=== PATIENT | female | born 1970 | race Caucasian/White ===

== ENCOUNTER 2017-06-18 00:58 | Inpatient (IN) | payer OTHER ==
[2017-06-18] MEDS ORDERED: Dextrose 50% Syringe 50 ML* 25 GM/50 ML SYRINGE IV PUSH PRN (02:25)
[2017-06-18] MEDS ORDERED: Nicotine Inhaler* 10 MG AMP INH PRN (02:35)
[2017-06-18] MEDS ORDERED: Mouth Piece, Nicotine* 1 EACH CARTRIDGE INH PRN (02:35)
[2017-06-18] MEDS ORDERED: Aspirin EC Low Dose* 81 MG TAB.EC PO ONE (02:39)
[2017-06-18] MEDS: Morphine INJ* 2 MG/ML 1 ML CARPUJECT IV PRN ×3 (03:54→20:44)
[2017-06-18] MEDS: Ondansetron INJ* 2 MG/ML VIAL IV PRN ×3 (03:55→16:41)
[2017-06-18 04:40] LABS: Hematocrit 41 % (35-47); Hemoglobin 13.9 g/dl (12.0-16.0); Mean Corpuscular HGB Conc 34 g/dl (31-36); Mean Corpuscular Hemoglobin 30 pg (27-31); Mean Corpuscular Volume 89 fL (80-97); Mean Platelet Volume 8 um3 (7.4-10.4); Platelet Count 279 10^3/ul (150-450); Red Blood Count 4.59 10^6/ul (4.0-5.4); Red Cell Distribution Width 13 % (10.5-15); White Blood Count 10.8 10^3/ul (3.5-10.8)
--- NOTE | 2017-06-18 04:48 | HP ---
CC: Dr. Sun * HISTORY AND PHYSICAL: DATE OF ADMISSION: 06/18/17 PRIMARY CARE PROVIDER: Dr. Sun. CHIEF COMPLAINT: Chest pain. HISTORY OF PRESENT ILLNESS: Ms. Frederick is a 47-year-old female who has a history of diabetes and bipolar disorder, who stopped all of her medications approximately 3 weeks ago because she is "old and fat." The patient did not elaborate why she felt that that was the reason to stop her medications. She states that earlier on the evening prior to admission, she had chest pain that she described as a burning sensation to the center of her chest. Additionally, she felt a tightness under the left breast and arm. The patient states the pain is still present to this point. When the pain started, she states that she had a very hard time catching her breath. She also felt very sweaty. She had no associated nausea. The patient presented to the emergency room of [facility] and was subsequently transferred here as her troponin was found to be very mildly elevated at 0.045. PAST MEDICAL HISTORY: 1. Type 2 diabetes. 2. ADHD. 3. Bipolar disorder. 4. Questionable seizure disorder. 5. Asthma. PAST SURGICAL HISTORY: 1. Left ear surgery. 2. Appendectomy. 3. x2. 4. Tubal ligation. MEDICATIONS: None. ALLERGIES: CODEINE, AZITHROMYCIN, CELEXA, and LEXAPRO. FAMILY HISTORY: Mom is living, she has a history of heart disease. Dad is from what sounds to be possibly multiple myeloma. SOCIAL HISTORY: The patient smokes 4 cigarettes per day. She denies any alcohol use. She does not work. She lives alone. She is unable to choose a surrogate decision maker. She starts crying when I asked her this question. REVIEW OF SYSTEMS: The patient continues to admit the chest pain. No significant shortness of breath at this point. No fevers, no chills. No change in appetite. No abdominal pain. No issues with constipation or diarrhea. Rest of the review of systems is obtained. Pertinent positives and negatives are as per HPI and otherwise negative. PHYSICAL EXAMINATION GENERAL: The patient is a well-developed, middle-aged female seen lying in the bed, appearing anxious, crying frequently during my exam. VITAL SIGNS: Pending. HEENT: Pupils are equal and round. Extraocular muscles are intact. Oropharynx is clear. Oral mucosa is moist. There is no submandibular, cervical , or supraclavicular adenopathy. Thyroid is not enlarged. No thyroid nodules are noted. PULMONARY: Lungs are clear to auscultation bilaterally. CARDIAC: Normal S1, S2. Heart rate sounds mildly tachycardic. I do not appreciate any murmurs. There is no lower extremity edema. ABDOMEN: Bowel sounds present. Abdomen is soft, nontender, and nondistended. MUSCULOSKELETAL: There is no cyanosis or clubbing of the digits. There is full active range of motion of all 4 extremities. NEURO: Cranial nerves II through XII are grossly intact. Sensation is intact to light touch throughout. Strength is 5/5 and symmetric in both upper and lower extremities bilaterally. PSYCH: The patient is alert. She is oriented x3. Again, she appears to be anxious. She is lying on her left side, rocking in the bed crying. SKIN: Warm and dry. There are no rashes. DIAGNOSTIC STUDIES/LAB DATA: Labs from [place], WBC 9.37, hemoglobin 14.1, hematocrit 42, platelets 305. INR is 0.87. Urinalysis reveals 3+ glucose, a specific gravity of 1.033, negative nitrites, negative leukocyte esterase. Sodium 139, potassium 4.2, chloride 102, CO2 27, BUN 11, creatinine 0.8, glucose 312, calcium 9.0, magnesium 1.8. Albumin 3.5. Bilirubin 0.1, AST less than 9, ALT 18, alk phos 134. CPK 46, troponin 0.045 (upper limit of normal at [facility] 0.020), CK-MB percentage 3.9. EKG does not appear to have been sent over with this packet. ASSESSMENT AND PLAN: Ms. Frederick is a 47-year-old female who has a history of diabetes, asthma, and bipolar disorder, who presented to [facility] with complaints of burning chest discomfort and more intense chest discomfort under her left breast/armpit and was found to have a mildly elevated troponin and sent to [facility] for further evaluation. 1. Elevated troponin and chest pain. The patient will have serial troponins x2. We will continue to follow this. If the troponin remains low, a stress test could be considered; however, I am very concerned about pursuing any aggressive treatment for potential coronary artery disease as the patient seems to not care about stopping her medications without any input from her physician. I do not know though that she would be an acceptable cardiac catheterization candidate. The patient will be given aspirin 81 mg p.o. x1 now. It does not appear she received aspirin at [facility]. 2. Bipolar disorder. Currently, the patient seems to be unstable from a mental health standpoint. She may need a Psychiatry consultation before being discharged home. It is unclear what she was taking previously for her bipolar disorder. Psychiatry consult may even be necessary just to identify what medications to start. The patient states that she would be agreeable to taking the medications, but says so in that she feels like she does not have a choice. 3. Tobacco abuse. We will initiate nicotine inhaler. 4. Type 2 diabetes. The patient stopped all of her medications several weeks ago. At one point, she was on metformin and Lantus. For now, I will have glucoses obtained a.c. and h.s. with lispro coverage. Hemoglobin A1c will be obtained. 5. DVT prophylaxis: According to the Adult Thrombosis Prophylaxis Risk Factor Assessment Guide, the patient has a total risk factor score of 2 making her moderate risk. Heparin 5000 units subcutaneous q.12 hours will be utilized as DVT prophylaxis. 6. Code status is DNR and again she is unable to choose her surrogate decision maker at this time. TIME SPENT: Fifty-five minutes was spent admitting this patient. [id number]/[facility] #: [id number] BHAKTI
[2017-06-18] MEDS ORDERED: Nitroglycerin 2% OINT* 1 GM PAK TOPICAL ONE (05:18)
--- NOTE | 2017-06-18 05:22 | PN ---
Progress Note - Progress Note Date of Service: 06/18/17 Note: The patient continues to c/o chest pain. Her troponin is up to 0.41. Will start NTG paste 1/2in topically now and heparin drip. Will consult cardiology. She will continue on ASA 81mg daily, lipitor 80mg daily and will start metoprolol 25mg BID. Follow up EKG at 0730. Check Echo.
[2017-06-18] MEDS: Metoprolol Tartrate TAB* 25 MG PO SCH ×5 (05:35→22:05)
[2017-06-18 05:47] LABS: ABS Basophils 0.1 10^3/ul (0-0.2); ABS Eosinophils 0.3 10^3/ul (0-0.6); ABS Lymphocytes 2.6 10^3/ul (1.0-4.8); ABS Neutrophils 6.2 10^3/ul (1.5-7.7); ABS Nucleated RBC 0 10^3/ul; Eosinophil % 3.3 % (0-6); Lymphocyte % 25.4 % (25-47); Nucleated Red Blood Cells % 0.3
[2017-06-18] MEDS: Heparin DRIP 25,000 UNITS(*) 25,000 UNITS/500 ML BAG IVPB SCH ×2 (06:09→09:17)
[2017-06-18] MEDS: Heparin VIAL(*) 5000 UNITS/ML VIAL (FIVE THOUSAND) IV SCH ×2 (06:10→18:31)
[2017-06-18] MEDS ORDERED: Aspirin Low Dose CHEW TAB* 81 MG ONE (06:43)
[2017-06-18] MEDS ORDERED: Nitroglycerin 2% OINT* 1 GM PAK ONE (06:44)
[2017-06-18] MEDS ORDERED: Ticagrelor* 90 MG TAB PO ONE ×2 (06:49)
[2017-06-18] MEDS ORDERED: fentaNYL* 50 MCG/ML 2 ML VIAL (100 MCG VIAL) ONE ×3 (06:58→07:53)
[2017-06-18] MEDS ORDERED: nitroGLYCERIN DRIP* 25,000 MCG/250 ML BTL ONE (06:58)
[2017-06-18] MEDS ORDERED: Heparin 2 UNITS/ML IVPREMIX* 2,000 ML IV ONE (06:58)
[2017-06-18] MEDS ORDERED: Lidocaine 1% INJ* 10 MG/ML 30 ML SDV ONE ×2 (06:58→08:14)
[2017-06-18] MEDS ORDERED: Midazolam* 1 MG/ML 10 ML VIAL (10 MG) ONE ×2 (06:59→07:10)
[2017-06-18] MEDS ORDERED: Iohexol 350 (CONTRAST) 200 ML MDV IV ONE (06:59)
[2017-06-18] MEDS ORDERED: Heparin(*) 1000 UNIT/ML 10 ML VIAL CATH LAB IV ONE (07:00)
[2017-06-18] MEDS ORDERED: VERAPAMIL 2.5 MG/ML 2 ML VIAL ** 5 mg/2 ml ONE (07:00)
[2017-06-18 07:04] LABS: EGFR Non-African American 115.5 (>60)
[2017-06-18 07:19] LABS: Hematocrit 39 % (35-47); Mean Corpuscular HGB Conc 33 g/dl (31-36); Mean Corpuscular Hemoglobin 29 pg (27-31); Mean Corpuscular Volume 88 fL (80-97); Mean Platelet Volume 10 um3 (7.4-10.4); Platelet Count 284 10^3/ul (150-450); Red Blood Count 4.45 10^6/ul (4.0-5.4); Red Cell Distribution Width 14 % (10.5-15); White Blood Count 13.4 10^3/ul (3.5-10.8)
[2017-06-18 07:47] LABS: EGFR Non-African American 113.2 (>60)
[2017-06-18] MEDS ORDERED: Heparin VIAL(*) 5000 UNITS/ML VIAL (FIVE THOUSAND) SUBCUT SCH (09:00)
[2017-06-18] MEDS ORDERED: NS 0.9% 1000 ML* 1,000 ML IV SCH (09:30)
[2017-06-18] MEDS: Insulin LISPRO* 1 UNITS UNIT SUBCUT SCH ×4 (10:18→22:02)
[2017-06-18] MEDS ORDERED: Magnesium Sulfate 1 GM IV* 1 GM/100 ML BAG IV ONE (10:26)
[2017-06-18] MEDS: LORazepam INJ* 2 MG/ML 1 ML VIAL IV PUSH PRN ×2 (10:33→20:38)
[2017-06-18] MEDS ORDERED: nitroGLYCERIN DRIP* 25,000 MCG/250 ML BTL IV SCH (12:00)
--- NOTE | 2017-06-18 15:07 | CONS ---
CC: Dr. Bernal INTERVENTIONAL CARDIOLOGY CONSULT NOTE: DATE OF CONSULT: 06/18/17 PRIMARY: None. HISTORY OF PRESENT ILLNESS: A 47-year-old woman admitted with non-ST elevation infarct, after the morning EKG, STEMI was called. She has a history of bipolar disease. She apparently stopped all her medications about 3 weeks ago. I hence consider her medically noncompliant. She presented to [facility] with chest discomfort with radiation to the left arm, their EKG at 2321 hours showed sinus rhythm with inferolateral nonspecific J- point ST depression without old EKGs available for comparison. Her blood pressure was high at 152/110. Her CBC was unremarkable, random blood sugar was high at 312. Creatinine normal at 0.8. Magnesium was lower limit of normal at 1.8. Her troponin was slightly elevated at 0.045, she was transferred to our institution. She was admitted, treated medically for ACS. During the night, she continued to have episodes of chest discomfort. EKG at 0627 hours showed sinus rhythm with new inferior J-point and ST elevation consistent with injury current. STEMI was called, she was brought to the lab[facility]. Because of her self discontinuation of all of her medications, I consider her medically noncompliant, and therefore, anticipated having a very high threshold for stenting, and if stenting was required, would likely use a bare-metal stent. PAST MEDICAL HISTORY: 1. Type 2 diabetes. 2. ADHD. 3. Bipolar disorder. 4. Questionable seizure disorder. 5. Asthma. MEDICATIONS: Prehospital medications none. Previously, she had been treated for diabetes and her bipolar disease. ALLERGIES: CODEINE, ZITHROMAX, CELEXA, and LEXAPRO per the chart. FAMILY HISTORY: She has a family history of premature coronary artery disease. SOCIAL HISTORY: She smokes a few cigarettes daily. REVIEW OF SYSTEMS: She denies any history of CVA or bleeding, aspirin intolerance. Remainder negative. PHYSICAL EXAM: BP at 0636 of 151/99, pulse 80s. She is afebrile. Brief exam in the lab[facility], lungs were clear laterally, cardiac exam was without gallop, murmur or rub. Carotids were normal, she had no JVD. She had a benign abdomen with bowel sounds, aorta not palpable. Radial, femoral and pedal pulses were all palpable. She had no cyanosis, clubbing, or edema. Psych: She was apparently oriented, anxious, seemed to understand the situation that she is having an infarct, the indication for cardiac cath and possible need for revascularization. DIAGNOSTIC STUDIES/LAB DATA: Labs here; CBC normal, BMP here notable for random blood sugar of 235. Hemoglobin A1c 9.5. Troponin here was 0.41 at 0433 , then decreased to 0.39. HCG was negative. Imp.: 1. IWSTEMI, she underwent emergent cath. 2. Medication non-compliance Jeane Bernal MD, FACCC [id number]/[facility] #: [id number] [facility]
[2017-06-18] MEDS ORDERED: Al Hydrox/Mg Hydrox/Simet LIQ* 30 ML UDC ONE (16:39)
[2017-06-18] MEDS: Al Hydrox/Mg Hydrox/Simet LIQ* 30 ML UDC PO ONE (16:41)
--- NOTE | 2017-06-18 17:33 | PN ---
Subjective Date of Service: 06/18/17 Interval History: Seen after [facility]. No intervention, 75% RCA preserved EF Patient very uncomfortable with wrist guard on needed s/p radial access Nausea and episode of emesis this AM but hungry later in the day however dislikes the food \ no additional chest pain while in nitro gtt Objective Active Medications: Acetaminophen (Tylenol Tab*) 650 mg PO Q4H PRN PRN Reason: PAIN Aspirin (Aspirin Low Dose Tab*) 81 mg PO DAILY [facility] Atorvastatin Calcium (Lipitor*) 80 mg PO 2100 [facility] Device (Nicotine Mouth Piece*) 1 each INH .USE WITH NICOTROL PRN PRN Reason: CRAVING Dextrose (D50w Syringe 50 Ml*) 12.5 gm IV PUSH .FOR FS < 60 - SS PRN PRN Reason: FS < 60 Heparin Sodium (Porcine) (Heparin Vial(*)) 0 units IV .PER PROTOCOL MELIA PRN Reason: Protocol Last Admin: 06/18/17 06:10 Dose: 3,500 units Heparin Sodium/Dextrose (Heparin Drip 25,000 Units(*)) 25,000 units in 500 mls @ 0 mls/hr IVPB PER RATE MELIA; Per Protocol PRN Reason: Protocol Last Admin: 06/18/17 09:17 Dose: 14 mls/hr Insulin Human Lispro (Humalog*) 0 units SUBCUT ACHS [facility] PRN Reason: Protocol Last Admin: 06/18/17 17:06 Dose: 3 units Lorazepam (Ativan Inj*) 0.5 mg IV PUSH Q6H PRN PRN Reason: ANXIETY Last Admin: 06/18/17 10:33 Dose: 0.5 mg Metoprolol Tartrate (Lopressor Tab*) 25 mg PO Q6H [facility] Last Admin: 06/18/17 16:41 Dose: 25 mg Morphine Sulfate (Morphine Inj (Syringe)*) 2 mg IV Q4H PRN PRN Reason: PAIN - MILD Last Admin: 06/18/17 06:47 Dose: 2 mg Nicotine (Nicotine Inhaler*) 10 mg INH Q2H PRN PRN Reason: CRAVING Nitroglycerin (Nitroglycerin Tab 0.4 Mg*) 0.4 mg SL Q5M PRN PRN Reason: ANGINA Ondansetron HCl (Zofran Inj*) 4 mg IV Q6H PRN PRN Reason: NAUSEA Last Admin: 06/18/17 16:41 Dose: 4 mg Ticagrelor (Brilinta*) 90 mg PO BID [facility] Vital Signs - 8 hr 06/18/17 06/18/17 06/18/17 09:30 09:43 09:46 Temperature 97.3 F Pulse Rate 81 90 81 Respiratory 17 19 18 Rate Blood Pressure 138/92 122/82 119/85 (mmHg) O2 Sat by Pulse 78 95 95 Oximetry 06/18/17 06/18/17 06/18/17 10:00 10:15 10:30 Temperature Pulse Rate 87 80 80 Respiratory 20 25 13 Rate Blood Pressure 122/83 112/67 116/80 (mmHg) O2 Sat by Pulse 91 93 93 Oximetry 06/18/17 06/18/17 06/18/17 10:33 10:45 11:00 Temperature Pulse Rate 82 85 Respiratory 17 23 20 Rate Blood Pressure 112/70 129/92 (mmHg) O2 Sat by Pulse 94 93 Oximetry 06/18/17 06/18/17 06/18/17 11:15 11:30 11:45 Temperature Pulse Rate 86 87 86 Respiratory 19 21 20 Rate Blood Pressure 132/84 129/81 126/84 (mmHg) O2 Sat by Pulse 92 94 95 Oximetry 06/18/17 06/18/17 06/18/17 11:57 12:00 12:01 Temperature 98.2 F Pulse Rate 89 81 Respiratory 21 15 Rate Blood Pressure 117/75 (mmHg) O2 Sat by Pulse 92 95 Oximetry 06/18/17 06/18/17 06/18/17 12:15 12:30 12:35 Temperature Pulse Rate 89 88 Respiratory 16 16 16 Rate Blood Pressure 127/79 113/63 (mmHg) O2 Sat by Pulse 95 95 Oximetry 06/18/17 06/18/17 06/18/17 12:45 13:00 13:01 Temperature Pulse Rate 86 95 86 Respiratory 15 29 17 Rate Blood Pressure 126/81 130/77 (mmHg) O2 Sat by Pulse 95 94 96 Oximetry 06/18/17 06/18/17 06/18/17 13:15 13:23 13:30 Temperature Pulse Rate 88 87 Respiratory 17 15 19 Rate Blood Pressure 136/87 134/88 (mmHg) O2 Sat by Pulse 95 95 Oximetry 06/18/17 06/18/17 06/18/17 13:46 14:00 14:15 Temperature Pulse Rate 99 87 88 Respiratory 20 16 21 Rate Blood Pressure 112/87 114/69 121/75 (mmHg) O2 Sat by Pulse 93 97 97 Oximetry 06/18/17 06/18/17 06/18/17 14:30 14:45 15:00 Temperature Pulse Rate 88 89 87 Respiratory 17 13 19 Rate Blood Pressure 119/73 117/67 136/82 (mmHg) O2 Sat by Pulse 97 95 96 Oximetry 06/18/17 06/18/17 06/18/17 15:10 15:15 15:30 Temperature 98.7 F Pulse Rate 86 85 Respiratory 15 25 Rate Blood Pressure 126/85 136/90 (mmHg) O2 Sat by Pulse 97 96 Oximetry 06/18/17 06/18/17 06/18/17 15:45 16:00 16:01 Temperature Pulse Rate 87 91 87 Respiratory 16 13 17 Rate Blood Pressure 144/92 91/75 (mmHg) O2 Sat by Pulse 94 98 96 Oximetry 06/18/17 06/18/17 06/18/17 16:15 16:30 17:00 Temperature Pulse Rate 88 83 Respiratory 23 18 18 Rate Blood Pressure 123/76 139/93 (mmHg) O2 Sat by Pulse 97 Oximetry Oxygen Devices in Use Now: None Appearance: NAD Eyes: No Scleral Icterus, PERRLA Ears/Nose/Mouth/Throat: NL Teeth, Lips, Gums, Clear Oropharnyx, Mucous Membranes Moist Neck: NL Appearance and Movements; NL JVP, Trachea Midline Respiratory: Symmetrical Chest Expansion and Respiratory Effort, Clear to Auscultation Cardiovascular: NL Sounds; No Murmurs; No JVD, RRR Abdominal: NL Sounds; No Tenderness; No Distention, No Hepatosplenomegaly Lymphatic: No Cervical Adenopathy Extremities: No Edema Skin: No Rash or Ulcers Neurological: Alert and Oriented x 3 Result Diagrams: 06/18/17 06:45 06/18/17 06:45 Microbiology and Other Data: Microbiology 06/18/17 05:00 Nasal Screen MRSA (PCR)(SEAN) - Final Nasal Mrsa Not Detected Assess/Plan/Problems-Billing Assessment: 47 yo F h/o DM2, bipolar dz, asthma, questionable seizure do presented to [facility] with chest pain and transferred to [facility] where ekg concerning for STEMI s /p [facility] without intervention - Patient Problems (1) STEMI (ST elevation myocardial infarction) Comment: Greatest blockage 75% Medical management especially in setting of subcritical occlusion and history of med non adherence ASA, brilinta, statin, beta augusto, heparin gtt nitro gtt and titrate down as pain allows Check lipids in AM (2) Diabetes Comment: hba1c 9.5% ISS (3) Bipolar disorder Comment: meds being confirmed with pharmacy currently (4) Tobacco abuse Comment: nicotine inhaler (5) DVT prophylaxis Comment: heparin gtt
[2017-06-18] MEDS ORDERED: LORazepam INJ* 2 MG/ML 1 ML VIAL IV PUSH ONE (17:51)
--- NOTE | 2017-06-18 20:16 | CATH ---
CC: Dr. Bernal CATH REPORT: DATE OF PROCEDURE: 06/18/17 PROCEDURE: Right radial artery access, bilateral selective coronary cineangiography, left heart catheterization, and left ventriculography. HISTORY: A 47-year-old diabetic with lengthy psychiatric history, medication noncompliance, with inferior wall ST elevation infarct. Because of medication noncompliance, threshold for stent placement is high, if needed likely would utilize bare metal stent. PROCEDURE ACCESS: Right radial artery sheath 6F slender. MEDICATIONS: 1. Subcu lidocaine. 2. IV Versed. 3. IV fentanyl. 4. IV bolus and infusion as well as loading dose of Brilinta given pre-tutorial laboratory supervisor. 5. Verapamil 3 mg. 6. Nitroglycerin 300 mcg IA. Additional nitroglycerin 100, 200 mcg IA for radial artery spasm. 7. IV nitroglycerin drip 12 mcg per minute. At the end of the procedure, her chest pain had resolved, she had ADAN-3 flow in the RPDA with intermediate stenosis, was not stented. She would be treated medically. DIAGNOSTIC CATHETER: 5F TIG4 for the RCA; because of radial artery spasm, torque control was poor, nonselective, but adequate left coronary imaging was obtained using a 5-Bulgarian Ikari left 3.5 guiding catheter as Ikari-3 was not available, a Slade left 3.5 catheter had no torque response. A 5F pigtail was used for LV gram. HEMODYNAMICS: Initial BP 162/115, LV 157/12-19, no aortic valve gradient on pullback. ANGIOGRAPHY: RCA: The RCA is tortuous, dominant, moderate, has a mid 30% stenosis, the PDA is moderate with a tubular proximal 75% stenosis extending back to the origin. The PDA has ADAN-3 flow. Left Main: The left main is normal in length and size, has no evident stenosis. Left coronary images were nonselective. LAD: The LAD is moderate, extends to the apex, has several small diagonals, the third diagonal bifurcates, proximal to the bifurcation there is a tubular 80 % stenosis extending into the bifurcation, it is too small for percutaneous revascularization. The LAD beyond the third diagonal has a smooth tubular 40% to 50% stenosis, distal LAD has ADAN-3 flow. Circumflex: The circumflex is not dominant, is moderate, supplies a small first marginal and 2 small distal posterolaterals. Circumflex has mid luminal irregularity without significant stenosis. LV gram: The inferior wall is dyskinetic in its mid portion, the anterior wall contracts normally, estimated LVEF 45%. Given the very small troponin rise, I expect the inferior wall is primarily stunned. CONCLUSION: 1. Two-vessel disease with inferior wall ST elevation infarct with intermediate PDA stenosis, normal flow, marked improvement/resolution of chest pain symptoms in the tutorial laboratory supervisor after institution of medical therapy in a patient with medication noncompliance, and relative contraindication for stenting. She will be treated medically. 2. LV systolic dysfunction as above. 3. Hypertension with elevated LVDP. 4. Left coronary imaging was adequate, although nonselective because of inability to selectively engage the left main due to right radial artery spasm limiting catheter movement and torque. 5. Successful right radial artery access. [id number]/[facility] #: [id number] [facility]TD[facility]
[2017-06-18] MEDS: OXcarbazepine TAB(*) 300 MG PO SCH (22:03)
[2017-06-18] MEDS: Topiramate TAB(*) 25 MG PO SCH (22:04)
[2017-06-18] MEDS: Atorvastatin* 80 MG TAB PO SCH (22:04)
[2017-06-18] MEDS: Ticagrelor* 90 MG TAB PO SCH (22:05)
[2017-06-19 01:26] LABS: Hematocrit 40 % (35-47); Hemoglobin 13.9 g/dl (12.0-16.0); Mean Corpuscular HGB Conc 35 g/dl (31-36); Mean Corpuscular Hemoglobin 31 pg (27-31); Mean Corpuscular Volume 88 fL (80-97); Mean Platelet Volume 8 um3 (7.4-10.4); Platelet Count 275 10^3/ul (150-450); Red Blood Count 4.52 10^6/ul (4.0-5.4); Red Cell Distribution Width 13 % (10.5-15); White Blood Count 21.6 10^3/ul (3.5-10.8)
[2017-06-19 01:48] LABS: ABS Basophils 0.2 10^3/ul (0-0.2); ABS Eosinophils 0.2 10^3/ul (0-0.6); ABS Lymphocytes 2.1 10^3/ul (1.0-4.8); ABS Monocytes 2.1 10^3/ul (0-0.8); ABS Neutrophils 17.1 10^3/ul (1.5-7.7); ABS Nucleated RBC 0 10^3/ul; Eosinophil % 0.8 % (0-6); Lymphocyte % 9.7 % (25-47); Nucleated Red Blood Cells % 0
[2017-06-19] MEDS: Al Hydrox/Mg Hydrox/Simet LIQ* 30 ML UDC PO ONE (02:00)
[2017-06-19] MEDS: Morphine INJ* 2 MG/ML 1 ML CARPUJECT IV PRN (02:00)
[2017-06-19] MEDS: Heparin VIAL(*) 5000 UNITS/ML VIAL (FIVE THOUSAND) IV SCH (02:28)
[2017-06-19] MEDS: Metoprolol Tartrate TAB* 25 MG PO SCH ×4 (04:28→22:02)
[2017-06-19] MEDS: LORazepam INJ* 2 MG/ML 1 ML VIAL IV PUSH PRN (04:29)
[2017-06-19 07:50] LABS: ABS Basophils 0.1 10^3/ul (0-0.2); ABS Eosinophils 0.1 10^3/ul (0-0.6); ABS Lymphocytes 2.3 10^3/ul (1.0-4.8); ABS Monocytes 1.3 10^3/ul (0-0.8); ABS Neutrophils 14.4 10^3/ul (1.5-7.7); ABS Nucleated RBC 0 10^3/ul; Eosinophil % 0.7 % (0-6); Hematocrit 42 % (35-47); Hemoglobin 14.2 g/dl (12.0-16.0); Lymphocyte % 12.5 % (25-47); Mean Corpuscular HGB Conc 34 g/dl (31-36); Mean Corpuscular Hemoglobin 30 pg (27-31); Mean Corpuscular Volume 88 fL (80-97); Mean Platelet Volume 9 um3 (7.4-10.4); Nucleated Red Blood Cells % 0; Platelet Count 284 10^3/ul (150-450); Red Blood Count 4.75 10^6/ul (4.0-5.4); Red Cell Distribution Width 13 % (10.5-15); White Blood Count 18.2 10^3/ul (3.5-10.8)
[2017-06-19 08:08] LABS: EGFR Non-African American 95.6 (>60)
[2017-06-19] MEDS: Insulin LISPRO* 1 UNITS UNIT SUBCUT SCH ×4 (09:07→20:52)
[2017-06-19] MEDS: OXcarbazepine TAB(*) 300 MG PO SCH ×2 (09:07→20:00)
[2017-06-19] MEDS: Topiramate TAB(*) 25 MG PO SCH ×2 (09:07→22:02)
[2017-06-19] MEDS: Aspirin Low Dose CHEW TAB* 81 MG PO SCH (09:07)
[2017-06-19] MEDS: Ticagrelor* 90 MG TAB PO SCH ×2 (09:07→20:01)
--- NOTE | 2017-06-19 09:31 | PN ---
Subjective Date of Service: 06/19/17 Interval History: Received ativan and morphine overnight. Feels very sleepy this morning. Denies pain, nausea, but is difficult to obtain a comprehensive review of systems due to sleepiness. Family History: Unchanged from Admission Social History: Unchanged from Admission Past Medical History: Unchanged from Admission Objective Active Medications: Acetaminophen (Tylenol Tab*) 650 mg PO Q4H PRN PRN Reason: PAIN Al Hydrox/Mg Hydrox/Simethicone (Maalox Plus*) 30 ml PO BID PRN PRN Reason: NAUSEA/HEARTBURN Aspirin (Aspirin Low Dose Tab*) [address] [facility] Last Admin: 06/19/17 09:07 Dose: 81 mg Atorvastatin Calcium (Lipitor*) [address] [facility] Last Admin: 06/18/17 22:04 Dose: 80 mg Device (Nicotine Mouth Piece*) 1 each INH .USE WITH NICOTROL PRN PRN Reason: CRAVING Dextrose (D50w Syringe 50 Ml*) 12.5 gm IV PUSH .FOR FS < 60 - SS PRN PRN Reason: FS < 60 Heparin Sodium (Porcine) (Heparin Vial(*)) 0 units IV .PER PROTOCOL [facility] PRN Reason: Protocol Last Admin: 06/19/17 02:28 Dose: 1,750 units Heparin Sodium/Dextrose (Heparin Drip 25,000 Units(*)) 25,000 units in 500 mls @ 0 mls/hr IVPB PER RATE MELIA; Per Protocol PRN Reason: Protocol Last Admin: 06/18/17 09:17 Dose: 14 mls/hr Insulin Human Lispro (Humalog*) [address] [facility] PRN Reason: Protocol Last Admin: 06/19/17 09:07 Dose: 9 units Lorazepam (Ativan Inj*) 0.5 mg IV PUSH Q6H PRN PRN Reason: ANXIETY Last Admin: 06/19/17 04:29 Dose: 0.5 mg Metoprolol Tartrate (Lopressor Tab*) [address] [facility] Last Admin: 06/19/17 09:07 Dose: 25 mg Morphine Sulfate (Morphine Inj (Syringe)*) 2 mg IV Q4H PRN PRN Reason: PAIN - MILD Last Admin: 06/19/17 02:00 Dose: 2 mg Nicotine (Nicotine Inhaler*) 10 mg INH Q2H PRN PRN Reason: CRAVING Nitroglycerin (Nitroglycerin Tab 0.4 Mg*) 0.4 mg SL Q5M PRN PRN Reason: ANGINA Ondansetron HCl (Zofran Inj*) 4 mg IV Q6H PRN PRN Reason: NAUSEA Last Admin: 06/18/17 16:41 Dose: 4 mg Oxcarbazepine (Trileptal Tab(*)) [address] [facility] Last Admin: 06/19/17 09:07 Dose: 600 mg Ticagrelor (Brilinta*) [address] [facility] Last Admin: 06/19/17 09:07 Dose: 90 mg Topiramate (Topamax(*)) [address] [facility] Last Admin: 06/19/17 09:07 Dose: 25 mg Topiramate (Topamax(*)) [address] [facility] Last Admin: 06/18/17 22:04 Dose: 50 mg Vital Signs - 8 hr 06/19/17 06/19/17 06/19/17 02:00 03:00 04:00 Temperature 97.4 F Pulse Rate 93 93 92 Respiratory 22 17 22 Rate Blood Pressure 143/93 132/89 132/87 (mmHg) O2 Sat by Pulse 96 95 96 Oximetry 06/19/17 06/19/17 06/19/17 04:29 05:00 06:00 Temperature Pulse Rate 98 92 Respiratory 16 21 18 Rate Blood Pressure 146/96 136/93 (mmHg) O2 Sat by Pulse 97 97 Oximetry 06/19/17 06/19/17 07:00 07:31 Temperature 98.8 F Pulse Rate 88 Respiratory 24 Rate Blood Pressure 119/74 (mmHg) O2 Sat by Pulse 96 Oximetry Oxygen Devices in Use Now: None Appearance: drowsy, arouses to voice, no distress Eyes: No Scleral Icterus, - - pupils 2mm b/l Ears/Nose/Mouth/Throat: NL Teeth, Lips, Gums Neck: NL Appearance and Movements; NL JVP Respiratory: Symmetrical Chest Expansion and Respiratory Effort, Clear to Auscultation Cardiovascular: NL Sounds; No Murmurs; No JVD, RRR, No Edema Abdominal: NL Sounds; No Tenderness; No Distention Lymphatic: No Cervical Adenopathy Extremities: - - right wrist lhc site clean, no hematoma Neurological: - - oriented only to person, follow simple commands, answers simple questions, able to sit up to side of bed, withdraws to pain Result Diagrams: 06/19/17 07:30 06/19/17 07:30 Microbiology and Other Data: Microbiology 06/18/17 05:00 Nasal Screen MRSA (PCR)(SEAN) - Final Nasal Mrsa Not Detected Assess/Plan/Problems-Billing Assessment: 47 yo F h/o DM2, bipolar dz, asthma, questionable seizure do presented to [facility] with chest pain and transferred to [facility] where ekg concerning for STEMI s /p [facility] without intervention - Patient Problems (1) STEMI (ST elevation myocardial infarction) Current Visit: Yes Status: Acute Code(s): I21.3 - ST ELEVATION (STEMI) MYOCARDIAL INFARCTION OF [facility] SITE SNOMED Code(s): 257486547 Comment: Greatest blockage 75% in the RCA Check urine drug screen for cocaine Medical management especially in setting of subcritical occlusion and med non adherence ASA, brilinta, statin, beta augusto, heparin gtt x 48 hours (has been 24hrs) Nitro drip has been titrated off, without chest pain now Lipid panel reveals hypercholesterolemia; continue high potency statin (atorva 80) (2) Bipolar disorder Current Visit: Yes Status: Acute Comment: topamax and oxcarbazepine resumed yesterday (3) DVT prophylaxis Current Visit: Yes Status: Acute Code(s): SRV7476 - SNOMED Code(s): 946120580 Comment: heparin gtt (4) Diabetes Current Visit: Yes Status: Acute Code(s): E11.9 - TYPE 2 DIABETES MELLITUS WITHOUT COMPLICATIONS SNOMED Code(s): 80348407 Comment: hba1c 9.5% ISS (5) Tobacco abuse Current Visit: Yes Status: Acute Code(s): Z72.0 - TOBACCO USE SNOMED Code( s): 127868702 Comment: nicotine inhaler Status and Disposition: inpatient, ICU level of care
[2017-06-19] MEDS: Heparin DRIP 25,000 UNITS(*) 25,000 UNITS/500 ML BAG IVPB SCH (10:48)
[2017-06-19] MEDS: Atorvastatin* 80 MG TAB PO SCH (20:01)
[2017-06-20 05:16] LABS: Hematocrit 42 % (35-47); Hemoglobin 14.1 g/dl (12.0-16.0); Mean Corpuscular HGB Conc 34 g/dl (31-36); Mean Corpuscular Hemoglobin 30 pg (27-31); Mean Corpuscular Volume 88 fL (80-97); Mean Platelet Volume 8 um3 (7.4-10.4); Platelet Count 259 10^3/ul (150-450); Red Blood Count 4.78 10^6/ul (4.0-5.4); Red Cell Distribution Width 14 % (10.5-15); White Blood Count 17.2 10^3/ul (3.5-10.8)
[2017-06-20 05:33] LABS: ABS Basophils 0.1 10^3/ul (0-0.2); ABS Eosinophils 0.1 10^3/ul (0-0.6); ABS Lymphocytes 1.8 10^3/ul (1.0-4.8); ABS Monocytes 1.6 10^3/ul (0-0.8); ABS Neutrophils 13.6 10^3/ul (1.5-7.7); ABS Nucleated RBC 0 10^3/ul; Eosinophil % 0.5 % (0-6); Lymphocyte % 10.6 % (25-47); Nucleated Red Blood Cells % 0
[2017-06-20 05:35] LABS: EGFR Non-African American 89.3 (>60)
[2017-06-20] MEDS: OXcarbazepine TAB(*) 300 MG PO SCH ×2 (08:36→21:50)
[2017-06-20] MEDS: Topiramate TAB(*) 25 MG PO SCH ×2 (08:36→21:50)
[2017-06-20] MEDS: Insulin LISPRO* 1 UNITS UNIT SUBCUT SCH ×4 (08:36→21:50)
[2017-06-20] MEDS: Aspirin Low Dose CHEW TAB* 81 MG PO SCH (08:36)
[2017-06-20] MEDS: Ticagrelor* 90 MG TAB PO SCH ×2 (08:36→21:49)
[2017-06-20] MEDS: Metoprolol Tartrate TAB* 25 MG PO SCH ×4 (09:07→21:50)
--- NOTE | 2017-06-20 12:26 | RAD ---
HISTORY: Weakness COMPARISONS: None TECHNIQUE: Multiple contiguous axial CT scans were obtained of the head without intravenous contrast. FINDINGS: HEMORRHAGE/INFARCT: There is no hemorrhage or acute infarct. MASSES/SHIFT: There is no mass or shift. EXTRA-AXIAL SPACES: There are no extra-axial fluid collections. SULCI AND VENTRICLES: The sulci and ventricles are normal in size and position for the patient's stated age. CEREBRUM: There are no focal parenchymal abnormalities. BRAINSTEM: There are no focal parenchymal abnormalities. CEREBELLUM: There are no focal parenchymal abnormalities. VESSELS: The vessels are grossly normal. PARANASAL SINUSES: The paranasal sinuses are clear. ORBITS: The orbits are unremarkable. BONES AND SOFT TISSUE: No bone or soft tissue abnormalities are noted. OTHER: None IMPRESSION: NO ACUTE INTRACRANIAL PATHOLOGY.
[2017-06-20] MEDS: LORazepam INJ* 2 MG/ML 1 ML VIAL IV PUSH PRN (13:28)
--- NOTE | 2017-06-20 18:06 | PN ---
Subjective Date of Service: 06/20/17 Interval History: no overnight events. she says this is the "most boring hospital" she's ever been to. she attempted to elope this morning but was brought back by security. no sore throat, headaches, nausea, abdominal pain, chest pain, diarrhea, rashes. Family History: Unchanged from Admission Social History: Unchanged from Admission Past Medical History: Unchanged from Admission Objective Active Medications: Acetaminophen (Tylenol Tab*) 650 mg PO Q4H PRN PRN Reason: PAIN Al Hydrox/Mg Hydrox/Simethicone (Maalox Plus*) 30 ml PO BID PRN PRN Reason: NAUSEA/HEARTBURN Aspirin (Aspirin Low Dose Tab*) 81 mg PO DAILY [facility] Last Admin: 06/20/17 08:36 Dose: 81 mg Atorvastatin Calcium (Lipitor*) 80 mg PO 2100 [facility] Last Admin: 06/19/17 20:01 Dose: 80 mg Device (Nicotine Mouth Piece*) 1 each INH .USE WITH NICOTROL PRN PRN Reason: CRAVING Dextrose (D50w Syringe 50 Ml*) 12.5 gm IV PUSH .FOR FS < 60 - SS PRN PRN Reason: FS < 60 Insulin Human Lispro (Humalog*) 0 units SUBCUT ACHS [facility] PRN Reason: Protocol Last Admin: 06/20/17 16:37 Dose: Not Given Lorazepam (Ativan Inj*) 0.5 mg IV PUSH Q6H PRN PRN Reason: ANXIETY Last Admin: 06/20/17 13:28 Dose: 0.5 mg Metoprolol Tartrate (Lopressor Tab*) 50 mg PO TID [facility] Last Admin: 06/20/17 13:14 Dose: Not Given Morphine Sulfate (Morphine Inj (Syringe)*) 2 mg IV Q4H PRN PRN Reason: PAIN - MILD Last Admin: 06/19/17 02:00 Dose: 2 mg Nicotine (Nicotine Inhaler*) 10 mg INH Q2H PRN PRN Reason: CRAVING Nitroglycerin (Nitroglycerin Tab 0.4 Mg*) 0.4 mg SL Q5M PRN PRN Reason: ANGINA Ondansetron HCl (Zofran Inj*) 4 mg IV Q6H PRN PRN Reason: NAUSEA Last Admin: 06/18/17 16:41 Dose: 4 mg Oxcarbazepine (Trileptal Tab(*)) 600 mg PO BID [facility] Last Admin: 06/20/17 08:36 Dose: 600 mg Ticagrelor (Brilinta*) 90 mg PO BID [facility] Last Admin: 06/20/17 08:36 Dose: 90 mg Topiramate (Topamax(*)) 25 mg PO DAILY [facility] Last Admin: 06/20/17 08:36 Dose: 25 mg Topiramate (Topamax(*)) 50 mg PO BEDTIME [facility] Last Admin: 06/19/17 22:02 Dose: 50 mg Vital Signs - 8 hr 06/20/17 06/20/17 06/20/17 13:04 13:28 14:46 Temperature 97.7 F Pulse Rate 111 Respiratory 16 18 18 Rate Blood Pressure 89/70 (mmHg) O2 Sat by Pulse 100 Oximetry 06/20/17 15:45 Temperature 100.4 F Pulse Rate 114 Respiratory 16 Rate Blood Pressure 89/61 (mmHg) O2 Sat by Pulse 98 Oximetry Oxygen Devices in Use Now: None Appearance: withdrawn, apathetic, depressed Eyes: No Scleral Icterus Ears/Nose/Mouth/Throat: - - poor dentition Neck: NL Appearance and Movements; NL JVP Respiratory: Symmetrical Chest Expansion and Respiratory Effort, Clear to Auscultation Cardiovascular: NL Sounds; No Murmurs; No JVD, RRR Abdominal: NL Sounds; No Tenderness; No Distention Lymphatic: No Cervical Adenopathy Extremities: No Edema Skin: No Rash or Ulcers Neurological: Alert and Oriented x 3, - - strength is 5/5 in all extremities, but she is unsteady on her feet, and when she walks she drags her right foot Result Diagrams: 06/20/17 05:00 06/20/17 05:00 Microbiology and Other Data: Microbiology 06/18/17 05:00 Nasal Screen MRSA (PCR)(SEAN) - Final Nasal Mrsa Not Detected Assess/Plan/Problems-Billing Assessment: 47 yo F h/o DM2, bipolar dz, asthma, questionable seizure do presented to [facility] with chest pain and transferred to [facility] [place] where ekg concerning for STEMI s /p LHC without intervention - Patient Problems (1) Suicidal ideation Current Visit: Yes Status: Acute Code(s): R45.851 - SUICIDAL IDEATIONS SNOMED Code(s): 0283667 Comment: admit to involuntary status; needs constant 1:1 observation psych consulted plan for inpatient psych when ready for discharge (2) STEMI (ST elevation myocardial infarction) Current Visit: Yes Status: Acute Code(s): I21.3 - ST ELEVATION (STEMI) MYOCARDIAL INFARCTION OF [facility] SITE SNOMED Code(s): 408142067 Comment: Greatest blockage 75% in the RCA urine drug screen for cocaine was negative Medical management especially in setting of subcritical occlusion and med non adherence ASA, brilinta, statin, beta augusto. received 48 hours of heparin drip. Nitro drip off. Lipid panel reveals hypercholesterolemia; continue high potency statin (atorva 80) (3) Bipolar disorder Current Visit: Yes Status: Acute Comment: topamax and oxcarbazepine resumed appreciate psych input on medication recommendations (4) DVT prophylaxis Current Visit: Yes Status: Acute Code(s): NGO9585 - SNOMED Code(s): 124515148 Comment: lovenox sc (5) Diabetes Current Visit: Yes Status: Acute Code(s): E11.9 - TYPE 2 DIABETES MELLITUS WITHOUT COMPLICATIONS SNOMED Code(s): 84599552 Comment: hba1c 9.5% ISS (6) Tobacco abuse Current Visit: Yes Status: Acute Code(s): Z72.0 - TOBACCO USE SNOMED Code( s): 113376964 Comment: nicotine inhaler (7) Leukocytosis Current Visit: Yes Status: Acute Code(s): D72.829 - ELEVATED WHITE BLOOD CELL COUNT, UNSPECIFIED SNOMED Code(s): 051749967 Comment: likely stress response from stemi flu/monospot are negative ck mildly elevated no localizing infectious symptoms Status and Disposition: inpatient, will need inpatient psych
--- NOTE | 2017-06-20 18:08 | PN ---
Progress Note - Progress Note Date of Service: 06/20/17 Note: Saw patient on bedside. Says she wants to go home as no one cares. Even after explaining why she needs to be in the hospital she insists that she wants to go home. Risks of her acute medical conditions and not complying with proposed treatments were explained. She does not appear to comprehend anything explained. She appeared sad, depressed and demoralized but there was no evidence of hallucinations, delusions or psychomotor disturbances. At this time she lacks mental capacity to make a informed decision for discharge home and poses a substantial risk for serious harm including if she is discharged. Hence, she should be transferred to [facility] on an involuntary status after medical clearance. Since she is on Oxcarbamazepine her Sodium level should me monitored closely and current hyponatremia should be corrected either by fluid restriction or adding Sodium Cl tablet. Please contact [facility] if you have questions.
[2017-06-20] MEDS: Enoxaparin(*) 40 MG/0.4 ML SYR SUBCUT SCH (19:40)
[2017-06-20] MEDS: Atorvastatin* 80 MG TAB PO SCH (21:49)
[2017-06-20] MEDS: Morphine INJ* 2 MG/ML 1 ML CARPUJECT IV PRN (21:51)
[2017-06-21 05:15] LABS: ABS Basophils 0.1 10^3/ul (0-0.2); ABS Eosinophils 0.1 10^3/ul (0-0.6); ABS Lymphocytes 1.9 10^3/ul (1.0-4.8); ABS Monocytes 1.4 10^3/ul (0-0.8); ABS Neutrophils 9.4 10^3/ul (1.5-7.7); ABS Nucleated RBC 0 10^3/ul; Eosinophil % 0.9 % (0-6); Hematocrit 37 % (35-47); Hemoglobin 12.5 g/dl (12.0-16.0); Lymphocyte % 14.9 % (25-47); Mean Corpuscular HGB Conc 34 g/dl (31-36); Mean Corpuscular Hemoglobin 30 pg (27-31); Mean Corpuscular Volume 87 fL (80-97); Mean Platelet Volume 9 um3 (7.4-10.4); Nucleated Red Blood Cells % 0.1; Platelet Count 257 10^3/ul (150-450); Red Blood Count 4.19 10^6/ul (4.0-5.4); Red Cell Distribution Width 14 % (10.5-15); White Blood Count 12.9 10^3/ul (3.5-10.8)
[2017-06-21 05:35] LABS: EGFR Non-African American 90.8 (>60)
[2017-06-21] MEDS: Insulin LISPRO* 1 UNITS UNIT SUBCUT SCH ×5 (09:18→21:36)
[2017-06-21] MEDS: Metoprolol Tartrate TAB* 25 MG PO SCH ×3 (09:19→20:14)
[2017-06-21] MEDS: Topiramate TAB(*) 25 MG PO SCH ×2 (09:19→20:14)
[2017-06-21] MEDS: glipiZIDE TAB* 5 MG PO SCH (09:19)
[2017-06-21] MEDS: OXcarbazepine TAB(*) 300 MG PO SCH ×2 (09:19→20:14)
[2017-06-21] MEDS: Ticagrelor* 90 MG TAB PO SCH ×2 (09:19→20:13)
[2017-06-21] MEDS: metFORMIN* 500 MG TAB PO SCH ×2 (09:19→17:45)
[2017-06-21] MEDS: Aspirin Low Dose CHEW TAB* 81 MG PO SCH (09:19)
[2017-06-21] MEDS ORDERED: NS 0.9% 1000 ML* 1,000 ML IV SCH (10:45)
--- NOTE | 2017-06-21 11:04 | PN ---
Subjective Date of Service: 06/21/17 Interval History: Pt stated that she "can't walk straight" since the cath. PT evaluated and recommended gait belt. Pt is upset about the need of psychiatric hospitalization, called her psychiatrist from home who agreed with the need of admission to [facility]. Pt is very upset that her children are not visiting her and that "no one cares about her". She has no teeth and her dentures were left at home and her children will not bring the to her. Family History: Unchanged from Admission Social History: Unchanged from Admission Past Medical History: Unchanged from Admission Objective Active Medications: Acetaminophen (Tylenol Tab*) 650 mg PO Q4H PRN PRN Reason: PAIN Al Hydrox/Mg Hydrox/Simethicone (Maalox Plus*) 30 ml PO BID PRN PRN Reason: NAUSEA/HEARTBURN Aspirin (Aspirin Low Dose Tab*) 81 mg PO DAILY [facility] Last Admin: 06/21/17 09:19 Dose: 81 mg Atorvastatin Calcium (Lipitor*) 80 mg PO 2100 [facility] Last Admin: 06/20/17 21:49 Dose: 80 mg Device (Nicotine Mouth Piece*) 1 each INH .USE WITH NICOTROL PRN PRN Reason: CRAVING Dextrose (D50w Syringe 50 Ml*) 12.5 gm IV PUSH .FOR FS < 60 - SS PRN PRN Reason: FS < 60 Enoxaparin Sodium (Lovenox(*)) 40 mg SUBCUT Q24H [facility] Last Admin: 06/20/17 19:40 Dose: 40 mg Glipizide (Glucotrol Tab*) 5 mg PO DAILY [facility] Last Admin: 06/21/17 09:19 Dose: 5 mg Sodium Chloride (Ns 0.9% 1000 Ml*) 1,000 mls @ 125 mls/hr IV PER RATE [facility] Insulin Human Lispro (Humalog*) 0 units SUBCUT ACHS [facility] PRN Reason: Protocol Last Admin: 06/21/17 09:18 Dose: 6 units Lorazepam (Ativan Inj*) 0.5 mg IV PUSH Q6H PRN PRN Reason: ANXIETY Last Admin: 06/20/17 13:28 Dose: 0.5 mg Metformin HCl (Glucophage*) 500 mg PO BID WITH MEALS [facility] Last Admin: 06/21/17 09:19 Dose: 500 mg Metoprolol Tartrate (Lopressor Tab*) 50 mg PO TID [facility] Last Admin: 06/21/17 09:19 Dose: 50 mg Morphine Sulfate (Morphine Inj (Syringe)*) 2 mg IV Q4H PRN PRN Reason: PAIN - MILD Last Admin: 06/20/17 21:51 Dose: 2 mg Nicotine (Nicotine Inhaler*) 10 mg INH Q2H PRN PRN Reason: CRAVING Nitroglycerin (Nitroglycerin Tab 0.4 Mg*) 0.4 mg SL Q5M PRN PRN Reason: ANGINA Ondansetron HCl (Zofran Inj*) 4 mg IV Q6H PRN PRN Reason: NAUSEA Last Admin: 06/18/17 16:41 Dose: 4 mg Oxcarbazepine (Trileptal Tab(*)) 600 mg PO BID [facility] Last Admin: 06/21/17 09:19 Dose: 600 mg Ticagrelor (Brilinta*) 90 mg PO BID [facility] Last Admin: 06/21/17 09:19 Dose: 90 mg Topiramate (Topamax(*)) 25 mg PO DAILY [facility] Last Admin: 06/21/17 09:19 Dose: 25 mg Topiramate (Topamax(*)) 50 mg PO BEDTIME [facility] Last Admin: 06/20/17 21:50 Dose: 50 mg Vital Signs - 8 hr 06/21/17 06/21/17 06/21/17 04:12 07:45 07:59 Temperature 98.8 F 98.9 F Pulse Rate 100 103 Respiratory 16 16 20 Rate Blood Pressure 94/55 110/64 (mmHg) O2 Sat by Pulse 97 99 Oximetry Oxygen Devices in Use Now: None Appearance: 47 yo F in nAD, AAOx3 Eyes: No Scleral Icterus, PERRLA Ears/Nose/Mouth/Throat: Clear Oropharnyx, Mucous Membranes Moist, - - no teeth Neck: NL Appearance and Movements; NL JVP, Trachea Midline Respiratory: Symmetrical Chest Expansion and Respiratory Effort, Clear to Auscultation Cardiovascular: NL Sounds; No Murmurs; No JVD, RRR Abdominal: NL Sounds; No Tenderness; No Distention Lymphatic: No Cervical Adenopathy Extremities: No Edema, No Clubbing, Cyanosis Skin: No Rash or Ulcers, No Nodules or Sclerosis Neurological: Alert and Oriented x 3, - - ataxic gait, mild R leg weakness, finger to nose dysmetric by 2-3 cm b/l Result Diagrams: 06/21/17 04:47 06/21/17 04:47 Microbiology and Other Data: Microbiology 06/18/17 05:00 Nasal Screen MRSA (PCR)(SEAN) - Final Nasal Mrsa Not Detected Assess/Plan/Problems-Billing Assessment: 47 yo F h/o DM2, bipolar dz, asthma, questionable seizure do presented to [facility] with chest pain and transferred to [facility] where ekg concerning for STEMI s /p cath without intervention - Patient Problems (1) STEMI (ST elevation myocardial infarction) Comment: Greatest blockage 75% in the RCA urine drug screen for cocaine was negative Medical management especially in setting of subcritical occlusion and med non adherence ASA, brilinta, statin, beta augusto. received 48 hours of heparin drip. On lopressor 50 mg TID in face of hypotension-half od doses were held. d/w Dr. Funes who recommends continuation of current dose and monitoring Lipid panel reveals hypercholesterolemia; continue Lipitor (2) Ataxia Comment: pt states that it occured post cath Pt is ataxic on exam. D/w DR. Huerta who recommended MRI brain and will see pt in consult (3) Bipolar disorder Comment: topamax and oxcarbazepine resumed(pt stopped it x 3 weeks prior to her admission) appreciate psych input on medication recommendations (4) Hyponatremia Comment: Sodium still 129 (mild hyponatremia), but pt had been on Trileptal for several years with no hyponatremia in the past. Pt has no teeth and PO intake had been inconsistent due to mood swings. will start IVF-suspect pt has mild hypovolemia She refuses to consider discontinuation of Trileptal. (5) Leukocytosis Comment: likely stress response from STEMI flu/monospot are negative resolving (6) Diabetes Comment: hba1c 9.5% cont ISS restarting glipizide, metformin (7) Suicidal ideation Comment: admit to involuntary status; needs constant 1:1 observation psych consulted plan for inpatient psych when ready for discharge No SI today (8) DVT prophylaxis Comment: lovenox sc Status and Disposition: inpatient, will need inpatient psych
[2017-06-21] MEDS: Venlafaxine EXT RELEASE CAP* 75 MG PO SCH (13:44)
[2017-06-21] MEDS: Morphine INJ* 2 MG/ML 1 ML CARPUJECT IV PRN (19:35)
[2017-06-21] MEDS: Enoxaparin(*) 40 MG/0.4 ML SYR SUBCUT SCH (20:10)
[2017-06-21] MEDS: Atorvastatin* 80 MG TAB PO SCH (20:21)
--- NOTE | 2017-06-21 22:02 | CONS ---
NEUROLOGY CONSULTATION: DATE OF CONSULT: 06/21/17 LOCATION: She is an inpatient in room 335. REFERRING PHYSICIAN: Dr. Arechiga. PRIMARY CARE PROVIDER: Dr. Toney. CHIEF COMPLAINT: Difficulty walking. HISTORY OF PRESENT ILLNESS: Stephany Frederick is a 47-year-old woman who presented to the hospital on 06/18/17 initially to [facility] where she complained of burning chest pain. She was transferred here after initial lab work showed an elevated troponin. She underwent a cardiac catheterization. This revealed 2-vessel coronary artery disease with an inferior wall infarction. Some time after that she was noted to have difficulty walking. When I asked when it started, she says when she got here, but then she says it began a month ago and then she said it began a few weeks ago. She says that she has dizziness and that her legs feel weak. She denies numbness or pain in her legs. She has not had any nausea or vomiting. She denies change in her vision or double vision or change in her speech. She had a brain CT yesterday without contrast, which I reviewed, which is interpreted as normal. She denies any history of falls or head injuries. She denies history of epilepsy or episodes of loss of consciousness. She had stopped all of her medications a few weeks ago for no clear reason. She has a history of bipolar disorder and was put back on Trileptal, venlafaxine, and Topamax. She does not know why she is on Topamax and denies headaches or seizures. She does not drink alcohol. PAST MEDICAL HISTORY: Notable for bipolar disorder, coronary artery disease, type 2 diabetes, hypertension, appendectomy, section, tubal ligation, and asthma. MEDICATIONS: She was not taking any medications when she was admitted. Currently she is on: 1. Aspirin 81 mg p.o. daily. 2. Atorvastatin 80 mg p.o. daily. 3. Lovenox 40 mg subcutaneous q.24 hours. 4. Glipizide 5 mg p.o. daily. 5. Sliding scale insulin. 6. Metformin 500 mg p.o. b.i.d. 7. Metoprolol 50 mg p.o. t.i.d. 8. Ondansetron 5 mg IV q.6 hours p.r.n. nausea. 9. Trileptal 600 mg p.o. b.i.d. 10. Brilinta 90 mg p.o. b.i.d. 11. Topiramate 75 mg p.o. daily in divided doses. 12. Venlafaxine XR 75 mg p.o. daily. ALLERGIES: She is listed to having allergies to CODEINE and CITALOPRAM. FAMILY HISTORY: Noncontributory. REVIEW OF SYSTEMS: Negative for headaches, falls, change in speech, double vision, pain or numbness in the arms or legs, neck problems. No history of traumatic brain injury. No recent colds, flus, or infections that she is aware of. No change in weight recently. PHYSICAL EXAMINATION: She is well-nourished and overweight. Temperature 98.9 temporally, blood pressure 110/64, heart rate about a 100 and regular. Respiratory rate 20 and oxygen saturations 99% on room air. Lungs are clear bilaterally. Heart is in a regular rhythm, but I do not hear any murmurs. There are no cervical bruits. Oral mucosa is moist and atraumatic. Neurologic Exam: Pupils react equally from 3 to 2 mm. Funduscopic exam is normal on the left. Eye movements are normal, specifically, no nystagmus. Visual moreno are full to confrontation. Facial musculature is symmetric. Tongue protrudes in the midline and palate rises symmetrically. There is no dysarthria. Facial sensation to light touch is symmetric. Motor exam reveals normal muscle tone, bulk, and strength proximally and distally in upper and lower extremities. There is no rigidity or spasticity. There is no sustention tremor. [id number] maneuver is normal bilaterally and [id number] maneuver is normal bilaterally as well. There is no rest tremor. Sensory exam is intact to light touch distally in upper and lower extremities. Pin discrimination is diminished in the feet. Vibration is mildly diminished in the toes. Reflexes are brisk in the upper extremities, grade 2 at the knees, trace at the ankles. Plantar responses flexor on the left and equivocal on the right. She is alert and oriented, but a poor historian with inconsistent responses. Language is generally fluent. I was able to stand her and she reported feeling dizzy. Eye movements were still normal without nystagmus. Romberg sign was negative initially, but then she admitted sudden dramatic alert, she then opened her eyes and smiled. She was able to walk a few steps, but was with a broad-base and was very unsteady. DIAGNOSTIC STUDIES/LAB DATA: Includes a chemistry profile with a glucose today of 286, it was 235 when she first came in. Hemoglobin A1c is 9.5%. Sodium is down to 129, the day after admission was 133 when she came in. Calcium is normal at 8.9 and liver enzymes are normal. She has elevated CK and troponins up to 06/19/17. Total T3 is slightly low at 0.45, but TSH is normal at 0.67. T4 is within normal limits at 7.09. CBC is notable for slight bump in her white blood cell count to 12.9 today, it was 13.4 when she first came in. Toxicology screen on 06/19/17 was positive for opiates and benzodiazepines. IMPRESSION: Impression is that of ataxia, which looks like it might be psychogenic. However, given the uncertainty of onset and the fact that she did have a cardiac catheterization, I have recommended MRI of the brain to look for any evidence of posterior circulation stroke. I would also recommend checking a vitamin B12 level as she has some signs of neuropathy on exam, although it is probably from poorly controlled diabetes. I will order a Lyme screen and serum protein electrophoresis for the same reasons. I will follow her along with you. Her imaging shows and if it is negative and her labs are unremarkable, we will just try to encourage with physical therapy to get her back on her feet again. [id number]/[facility] #: [id number] BHAKTI
[2017-06-22 05:53] LABS: ABS Basophils 0.1 10^3/ul (0-0.2); ABS Eosinophils 0.1 10^3/ul (0-0.6); ABS Lymphocytes 1.6 10^3/ul (1.0-4.8); ABS Neutrophils 8.6 10^3/ul (1.5-7.7); ABS Nucleated RBC 0 10^3/ul; Hematocrit 37 % (35-47); Hemoglobin 12.3 g/dl (12.0-16.0); Lymphocyte % 14.4 % (25-47); Mean Corpuscular HGB Conc 34 g/dl (31-36); Mean Corpuscular Hemoglobin 30 pg (27-31); Mean Corpuscular Volume 88 fL (80-97); Mean Platelet Volume 9 um3 (7.4-10.4); Nucleated Red Blood Cells % 0; Platelet Count 278 10^3/ul (150-450); Red Blood Count 4.16 10^6/ul (4.0-5.4); Red Cell Distribution Width 13 % (10.5-15); White Blood Count 11.4 10^3/ul (3.5-10.8)
[2017-06-22 06:11] LABS: EGFR Non-African American 106.7 (>60)
[2017-06-22] MEDS: Insulin LISPRO* 1 UNITS UNIT SUBCUT SCH ×4 (08:18→20:46)
[2017-06-22] MEDS: glipiZIDE TAB* 5 MG PO SCH (08:19)
[2017-06-22] MEDS: Aspirin Low Dose CHEW TAB* 81 MG PO SCH (08:20)
[2017-06-22] MEDS: Metoprolol Tartrate TAB* 25 MG PO SCH (08:20)
[2017-06-22] MEDS: Venlafaxine EXT RELEASE CAP* 75 MG PO SCH (08:20)
[2017-06-22] MEDS: Topiramate TAB(*) 25 MG PO SCH ×2 (08:20→21:10)
[2017-06-22] MEDS: Ticagrelor* 90 MG TAB PO SCH ×2 (08:20→20:31)
[2017-06-22] MEDS: OXcarbazepine TAB(*) 300 MG PO SCH ×2 (08:20→20:31)
[2017-06-22] MEDS: metFORMIN* 500 MG TAB PO SCH ×2 (08:20→17:23)
--- NOTE | 2017-06-22 08:23 | PN ---
Subjective Date of Service: 06/22/17 Interval History: Complaining of left shoulder pain overnight, float paged, lateral wall changes on EKG, given MS and improved. Otherwise, no new issues. She went for MRI yesterday afternoon but it was not done. She told geospatial technologist that she had inner ear surgery. She states she might have metal in her inner ear. She continues to have difficulty walking, states that she feels unsteady when trying to get up. No SI this am B12: 360 SPEP: Pending Lyme: Pending MRI: Pending Brain CT: Negative for acute issues Family History: Unchanged from Admission Social History: Unchanged from Admission Past Medical History: Unchanged from Admission Objective Active Medications: Acetaminophen (Tylenol Tab*) 650 mg PO Q4H PRN PRN Reason: PAIN Al Hydrox/Mg Hydrox/Simethicone (Maalox Plus*) 30 ml PO BID PRN PRN Reason: NAUSEA/HEARTBURN Aspirin (Aspirin Low Dose Tab*) 81 mg PO DAILY [facility] Last Admin: 06/21/17 09:19 Dose: 81 mg Atorvastatin Calcium (Lipitor*) 80 mg PO 2100 [facility] Last Admin: 06/21/17 20:21 Dose: 80 mg Device (Nicotine Mouth Piece*) 1 each INH .USE WITH NICOTROL PRN PRN Reason: CRAVING Last Admin: 06/21/17 20:14 Dose: 1 each Dextrose (D50w Syringe 50 Ml*) 12.5 gm IV PUSH .FOR FS < 60 - SS PRN PRN Reason: FS < 60 Enoxaparin Sodium (Lovenox(*)) 40 mg SUBCUT Q24H [facility] Last Admin: 06/21/17 20:10 Dose: 40 mg Glipizide (Glucotrol Tab*) 5 mg PO DAILY [facility] Last Admin: 06/21/17 09:19 Dose: 5 mg Sodium Chloride (Ns 0.9% 1000 Ml*) 1,000 mls @ 125 mls/hr IV PER RATE [facility] Last Admin: 06/21/17 11:45 Dose: 125 mls/hr Insulin Human Lispro (Humalog*) 0 units SUBCUT ACHS [facility] PRN Reason: Protocol Last Admin: 06/21/17 21:36 Dose: 6 units Lorazepam (Ativan Inj*) 0.5 mg IV PUSH Q6H PRN PRN Reason: ANXIETY Last Admin: 06/20/17 13:28 Dose: 0.5 mg Metformin HCl (Glucophage*) 500 mg PO BID WITH MEALS [facility] Last Admin: 06/21/17 17:45 Dose: 500 mg Metoprolol Tartrate (Lopressor Tab*) 50 mg PO TID [facility] Last Admin: 06/21/17 20:14 Dose: 50 mg Morphine Sulfate (Morphine Inj (Syringe)*) 2 mg IV Q4H PRN PRN Reason: PAIN - MILD Last Admin: 06/21/17 19:35 Dose: 2 mg Nicotine (Nicotine Inhaler*) 10 mg INH Q2H PRN PRN Reason: CRAVING Last Admin: 06/21/17 20:14 Dose: 10 mg Nitroglycerin (Nitroglycerin Tab 0.4 Mg*) 0.4 mg SL Q5M PRN PRN Reason: ANGINA Ondansetron HCl (Zofran Inj*) 4 mg IV Q6H PRN PRN Reason: NAUSEA Last Admin: 06/18/17 16:41 Dose: 4 mg Oxcarbazepine (Trileptal Tab(*)) 600 mg PO BID [facility] Last Admin: 06/21/17 20:14 Dose: 600 mg Ticagrelor (Brilinta*) 90 mg PO BID [facility] Last Admin: 06/21/17 20:13 Dose: 90 mg Topiramate (Topamax(*)) 25 mg PO DAILY [facility] Last Admin: 06/21/17 09:19 Dose: 25 mg Topiramate (Topamax(*)) 50 mg PO BEDTIME [facility] Last Admin: 06/21/17 20:14 Dose: 50 mg Venlafaxine HCl (Effexor Xr Cap*) 75 mg PO DAILY [facility] Last Admin: 06/21/17 13:44 Dose: 75 mg Vital Signs 06/21/17 06/21/17 06/21/17 12:03 19:21 19:35 Temperature 97.6 F 98.6 F Pulse Rate 91 104 Respiratory 20 22 18 Rate Blood Pressure 101/63 100/50 (mmHg) O2 Sat by Pulse 100 99 Oximetry 06/21/17 06/21/17 06/22/17 20:00 20:54 00:15 Temperature 98.8 F Pulse Rate 94 Respiratory 18 16 20 Rate Blood Pressure 82/56 (mmHg) O2 Sat by Pulse 100 Oximetry 06/22/17 06/22/17 03:10 08:07 Temperature 98.0 F 98.6 F Pulse Rate 95 93 Respiratory 20 16 Rate Blood Pressure 98/60 100/63 (mmHg) O2 Sat by Pulse 99 98 Oximetry Oxygen Devices in Use Now: Nasal Cannula Neurology Exam: General: Awake, Alert, Oriented x3 HEENT: Normocephelic/atraumatic, sclera anicteric, mucous membranes moist Neck: Supple Chest: Clear to auscultation bilaterally Cardiovascular: Regular rate and rhythm without murmurs, rubs, gallops Abdomen: Soft, nontender/nondistended Extremities: No clubbing, cyanosis, or edema. Scattered tattoos Neurological Findings: Speech: fluent without dysarthric, repetition intact Cranial Nerve: PEERL, EOM intact, VFF, no nystagmus, face symmetric bilaterally , facial sensation intact, hearing intact to finger rub bilaterally, palate elevates symmetrically, tongue midline Motor: 5/5 throughout, proximal and distal extremities x4 tone/bulk normal Sensation: Mildly decreased vibration in the toes, otherwise intact to LT/PP Deep Tendon Reflex: 2+ symmetric in the upper/lower extremities, Babinski - equivocal bilaterally Finger to nose, rapid alternating movements intact without tremor, no resting tremor Gait: wide based, mild shuffle, able to ambulate 2-3 feet. Moderate sway with eyes closed. Result Diagrams: 06/22/17 05:07 06/22/17 05:07 Microbiology and Other Data: Microbiology 06/18/17 05:00 Nasal Screen MRSA (PCR)(SEAN) - Final Nasal Mrsa Not Detected Assessment/Plan Assessment: 47 year old with a history of bi-polar disorder, Diabetes, possible seizures in the past, admitted with STEMI, stats post cath with no stenting, complaining of difficulty walking since the cath. --Gait abnormality: --No clear cut pattern. Does not appear to be ataxic on exam today. Wide based, shuffles. Concern for a functional gait --MRI was not done yesterday. I spoke with Dr. Arechiga. The patient told the geospatial technologist that she had inner ear surgery and could have metal in her ear. There is apparently no X-ray that can definitively rule out metal, given the location and MRI cannot be done. CT was negative. --Continue PT --Mild loss of vibration in the toes, possible mild neuropathy, TSH, SPEP and Lyme pending, B12 normal. Likely diabetic --Given acute onset after cath, this is unlikely the cause of her gait abnormality --Will continue to monitor. Consider repeat CT to look for evolution if her gait worsens but posterior circulation strokes are poorly seen on CT
[2017-06-22] MEDS: Acetaminophen TAB* 325 MG PO PRN ×2 (09:11→15:37)
[2017-06-22] MEDS: Al Hydrox/Mg Hydrox/Simet LIQ* 30 ML UDC PO PRN ×2 (09:12→15:38)
[2017-06-22] MEDS: Nitroglycerin TAB 0.4 MG* 0.4 MG TAB SL PRN ×2 (09:14→15:20)
--- NOTE | 2017-06-22 10:32 | ECHO ---
Patient: MAHIN ALFARO [facility] Rec#: [id number] : 1970 Date: 06/22/2017 Age: 47y Height: 152.4 cm / 60.0 in Weight: 78.4 kg / 172.8 lbs Sex: F BSA: 1.75 Room#: 435 Admit Date#: 06/20/2017 Type: Inpatient Referring: Mode Funes MD Reading: Mode Funes MD Redraw[facility] Tran[facility] Ech[facility]ogram Indication: Follow up of STEMI BP: 100/63 HR: 90 Rhythm: NSR Findings History: Bipolar disorder, DM, s/p cath, smoker. This is a LIMITED study to evaluate left ventricular systolic function. Technical Comments: The study quality is good. Completed at 1015. Left Ventricle: There are multiple regional wall motion abnormalities. There is severe hypo to akinesis of the posterior wall in the 4 chamber and 3 chamber apical views.There is mild to moderate hypokinesis elsewhere. There is moderately decreased left ventricular systolic function. The estimated ejection fraction is 35-40%. Right Ventricle: The right ventricular cavity size is normal. The right ventricular global systolic function is normal. Mitral Valve: There is mild mitral regurgitation. Pericardium: The pericardium is not well visualized. Conclusions There are multiple regional wall motion abnormalities. There is severe hypo to akinesis of the posterior wall in the 4 chamber and 3 chamber apical views.There is mild to moderate hypokinesis elsewhere. There is moderately decreased left ventricular systolic function. The estimated ejection fraction is 35-40%. There is mild mitral regurgitation.
--- NOTE | 2017-06-22 11:42 | PN ---
Subjective Date of Service: 06/22/17 Interval History: Pt has left shoulder pain at night and in AM developed SOB after Brilinta, got better after coffee. EKG showed lateral wall changes. Repeat troponin "flat", CKMB trending down. Pt now is feeling well, no CP, no SOB. Family History: Unchanged from Admission Social History: Unchanged from Admission Past Medical History: Unchanged from Admission Objective Active Medications: Acetaminophen (Tylenol Tab*) 650 mg PO Q4H PRN PRN Reason: PAIN Last Admin: 06/22/17 09:11 Dose: 650 mg Al Hydrox/Mg Hydrox/Simethicone (Maalox Plus*) 30 ml PO BID PRN PRN Reason: NAUSEA/HEARTBURN Last Admin: 06/22/17 09:12 Dose: 30 ml Aspirin (Aspirin Low Dose Tab*) 81 mg PO DAILY [facility] Last Admin: 06/22/17 08:20 Dose: 81 mg Atorvastatin Calcium (Lipitor*) 80 mg PO 2100 [facility] Last Admin: 06/21/17 20:21 Dose: 80 mg Device (Nicotine Mouth Piece*) 1 each INH .USE WITH NICOTROL PRN PRN Reason: CRAVING Last Admin: 06/21/17 20:14 Dose: 1 each Dextrose (D50w Syringe 50 Ml*) 12.5 gm IV PUSH .FOR FS < 60 - SS PRN PRN Reason: FS < 60 Enoxaparin Sodium (Lovenox(*)) 40 mg SUBCUT Q24H [facility] Last Admin: 06/21/17 20:10 Dose: 40 mg Glipizide (Glucotrol Tab*) 5 mg PO DAILY [facility] Last Admin: 06/22/17 08:19 Dose: 5 mg Lactated Ringer's (Lactated Ringers 1000 Ml Bag*) 1,000 mls @ 75 mls/hr IV PER RATE [facility] Last Admin: 06/22/17 09:15 Dose: 75 mls/hr Insulin Human Lispro (Humalog*) 0 units SUBCUT ACHS [facility] PRN Reason: Protocol Last Admin: 06/22/17 08:18 Dose: 6 units Lorazepam (Ativan Inj*) 0.5 mg IV PUSH Q6H PRN PRN Reason: ANXIETY Last Admin: 06/20/17 13:28 Dose: 0.5 mg Metformin HCl (Glucophage*) 500 mg PO BID WITH MEALS [facility] Last Admin: 06/22/17 08:20 Dose: 500 mg Metoprolol Tartrate (Lopressor Tab*) 50 mg PO BID [facility] Morphine Sulfate (Morphine Inj (Syringe)*) 2 mg IV Q4H PRN PRN Reason: PAIN - MILD Last Admin: 06/21/17 19:35 Dose: 2 mg Nicotine (Nicotine Inhaler*) 10 mg INH Q2H PRN PRN Reason: CRAVING Last Admin: 06/21/17 20:14 Dose: 10 mg Nitroglycerin (Nitroglycerin Tab 0.4 Mg*) 0.4 mg SL Q5M PRN PRN Reason: ANGINA Last Admin: 06/22/17 09:14 Dose: 0.4 mg Ondansetron HCl (Zofran Inj*) 4 mg IV Q6H PRN PRN Reason: NAUSEA Last Admin: 06/18/17 16:41 Dose: 4 mg Oxcarbazepine (Trileptal Tab(*)) 600 mg PO BID [facility] Last Admin: 06/22/17 08:20 Dose: 600 mg Ticagrelor (Brilinta*) 90 mg PO BID [facility] Last Admin: 06/22/17 08:20 Dose: 90 mg Topiramate (Topamax(*)) 25 mg PO DAILY [facility] Last Admin: 06/22/17 08:20 Dose: 25 mg Topiramate (Topamax(*)) 50 mg PO BEDTIME [facility] Last Admin: 06/21/17 20:14 Dose: 50 mg Venlafaxine HCl (Effexor Xr Cap*) 75 mg PO DAILY [facility] Last Admin: 06/22/17 08:20 Dose: 75 mg Vital Signs - 8 hr 06/22/17 06/22/17 08:07 09:15 Temperature 98.6 F Pulse Rate 93 Respiratory 16 16 Rate Blood Pressure 100/63 105/75 (mmHg) O2 Sat by Pulse 98 98 Oximetry Oxygen Devices in Use Now: None, Nasal Cannula Appearance: 47 yo F in nAD,AAOx3 Eyes: No Scleral Icterus, PERRLA Ears/Nose/Mouth/Throat: NL Teeth, Lips, Gums, Mucous Membranes Moist Neck: NL Appearance and Movements; NL JVP, Trachea Midline Respiratory: Symmetrical Chest Expansion and Respiratory Effort, Clear to Auscultation Cardiovascular: NL Sounds; No Murmurs; No JVD, RRR Abdominal: NL Sounds; No Tenderness; No Distention Lymphatic: No Cervical Adenopathy Extremities: No Edema, No Clubbing, Cyanosis Skin: No Rash or Ulcers, No Nodules or Sclerosis Neurological: Alert and Oriented x 3, NL Muscle Strength and Tone Result Diagrams: 06/22/17 05:07 06/22/17 05:07 Microbiology and Other Data: Microbiology 06/18/17 05:00 Nasal Screen MRSA (PCR)(SEAN) - Final Nasal Mrsa Not Detected Assess/Plan/Problems-Billing Assessment: 47 year old with a history of bi-polar disorder, Diabetes, possible seizures in the past, admitted with STEMI, s/p post cath with no stenting, complaining of difficulty walking since the cath. - Patient Problems (1) STEMI (ST elevation myocardial infarction) Comment: Greatest blockage 75% in the RCA urine drug screen for cocaine was negative Medical management especially in setting of subcritical occlusion and med non adherence ASA, brilinta, statin, beta augusto. received 48 hours of heparin drip. On lopressor 50 mg TID in face of hypotension will lower the dose to 50 mg BID- d/w Lipid panel reveals hypercholesterolemia; continue Lipitor (2) Ataxia Comment: pt states that it occured post cath, today improved, only slightly unsteady when walking. It appears functional as exam and the way pt walk changes with each time she is evaluated. Unable to do MRI. Lyme and SPEP pending , Vit B 12 level WNL. appreciate neuro consult (3) Bipolar disorder Comment: topamax and oxcarbazepine resumed(pt stopped it x 3 weeks prior to her admission) appreciate psych input on medication recommendations (4) Hyponatremia Comment: Improved with IVF. Cont LR at 75 ml/hr pt had been on Trileptal for several years with no hyponatremia in the past. She refuses to consider discontinuation of Trileptal. (5) Leukocytosis Comment: likely stress response from STEMI flu/monospot are negative resolving (6) Diabetes Comment: hba1c 9.5% cont ISS restarted glipizide, metformin (7) Suicidal ideation Comment: admit to involuntary status; needs constant 1:1 observation psych consulted plan for inpatient psych when ready for discharge No SI today (8) DVT prophylaxis Comment: lovenox sc Status and Disposition: inpatient, will need inpatient psych
[2017-06-22] MEDS: Enoxaparin(*) 40 MG/0.4 ML SYR SUBCUT SCH (20:30)
[2017-06-22] MEDS: Atorvastatin* 80 MG TAB PO SCH (20:31)
[2017-06-22] MEDS: Metoprolol Tartrate TAB* 50 mg PO SCH (20:31)
[2017-06-22] MEDS ORDERED: Diphenoxylat/Atrop 2.5-0.025M* 1 TAB PO ONE (23:50)
[2017-06-23 06:04] LABS: Hematocrit 35 % (35-47); Mean Corpuscular HGB Conc 34 g/dl (31-36); Mean Corpuscular Hemoglobin 30 pg (27-31); Mean Corpuscular Volume 88 fL (80-97); Mean Platelet Volume 9 um3 (7.4-10.4); Platelet Count 275 10^3/ul (150-450); Red Blood Count 4.02 10^6/ul (4.0-5.4); Red Cell Distribution Width 13 % (10.5-15); White Blood Count 12.2 10^3/ul (3.5-10.8)
[2017-06-23 06:06] LABS: ABS Basophils 0.1 10^3/ul (0-0.2); ABS Eosinophils 0.2 10^3/ul (0-0.6); ABS Lymphocytes 1.7 10^3/ul (1.0-4.8); ABS Monocytes 1.6 10^3/ul (0-0.8); ABS Neutrophils 8.7 10^3/ul (1.5-7.7); ABS Nucleated RBC 0 10^3/ul; Eosinophil % 1.3 % (0-6); Lymphocyte % 13.6 % (25-47); Nucleated Red Blood Cells % 0.1
[2017-06-23 06:21] LABS: EGFR Non-African American 87.9 (>60)
[2017-06-23] MEDS: Al Hydrox/Mg Hydrox/Simet LIQ* 30 ML UDC PO PRN (06:51)
[2017-06-23] MEDS ORDERED: Al Hydrox/Mg Hydrox/Simet LIQ* 30 ML UDC PO PRN (08:22)
[2017-06-23] MEDS ORDERED: Loperamide CAP* 2 MG PO PRN (08:22)
[2017-06-23] MEDS: OXcarbazepine TAB(*) 300 MG PO SCH ×2 (08:59→21:32)
[2017-06-23] MEDS: Ticagrelor* 90 MG TAB PO SCH ×2 (08:59→21:31)
[2017-06-23] MEDS: Topiramate TAB(*) 25 MG PO SCH ×2 (09:02→21:32)
[2017-06-23] MEDS: Venlafaxine EXT RELEASE CAP* 75 MG PO SCH (09:02)
[2017-06-23] MEDS: Metoprolol Tartrate TAB* 50 mg PO SCH ×2 (09:02→21:32)
[2017-06-23] MEDS: glipiZIDE TAB* 5 MG PO SCH (09:02)
[2017-06-23] MEDS: Insulin LISPRO* 1 UNITS UNIT SUBCUT SCH ×4 (09:02→21:32)
[2017-06-23] MEDS: Aspirin Low Dose CHEW TAB* 81 MG PO SCH (09:02)
[2017-06-23] MEDS: metFORMIN* 500 MG TAB PO SCH (09:08)
[2017-06-23] MEDS: Acetaminophen TAB* 325 MG PO PRN (09:56)
[2017-06-23] MEDS: Calcium Carbonate CHEW TAB* 500 MG (TUMS) PO PRN ×3 (10:19→21:32)
--- NOTE | 2017-06-23 13:04 | PN ---
Subjective Date of Service: 06/23/17 Interval History: Pt developed diarrhea and abd cramping inm the past 24H. this aM she had 3 very loose , brown BM's. Had CP and SOB after Brilinta this AM again -relieved by coffee. still very unsteady gait Family History: Unchanged from Admission Social History: Unchanged from Admission Past Medical History: Unchanged from Admission Objective Active Medications: Acetaminophen (Tylenol Tab*) 650 mg PO Q4H PRN PRN Reason: PAIN Last Admin: 06/23/17 09:56 Dose: 650 mg Al Hydrox/Mg Hydrox/Simethicone (Maalox Plus*) 30 ml PO Q4H PRN PRN Reason: INDIGESTION Aspirin (Aspirin Low Dose Tab*) 81 mg PO DAILY [facility] Last Admin: 06/23/17 09:02 Dose: 81 mg Atorvastatin Calcium (Lipitor*) 80 mg PO 2100 [facility] Last Admin: 06/22/17 20:31 Dose: 80 mg Calcium Carbonate (Tums*) 500 mg PO Q4H PRN PRN Reason: DISCOMFORT Last Admin: 06/23/17 10:19 Dose: 500 mg Device (Nicotine Mouth Piece*) 1 each INH .USE WITH NICOTROL PRN PRN Reason: CRAVING Last Admin: 06/21/17 20:14 Dose: 1 each Dextrose (D50w Syringe 50 Ml*) 12.5 gm IV PUSH .FOR FS < 60 - SS PRN PRN Reason: FS < 60 Enoxaparin Sodium (Lovenox(*)) 40 mg SUBCUT Q24H [facility] Last Admin: 06/22/17 20:30 Dose: 40 mg Glipizide (Glucotrol Tab*) 5 mg PO DAILY [facility] Last Admin: 06/23/17 09:02 Dose: 5 mg Lactated Ringer's (Lactated Ringers 1000 Ml Bag*) 1,000 mls @ 75 mls/hr IV PER RATE [facility] Last Admin: 06/22/17 23:14 Dose: 75 mls/hr Insulin Human Lispro (Humalog*) 0 units SUBCUT ACHS [facility] PRN Reason: Protocol Last Admin: 06/23/17 12:05 Dose: Not Given Loperamide HCl (Imodium Cap*) 2 mg PO .SEE DIRECTIONS PRN PRN Reason: DIARRHEA Last Admin: 06/23/17 09:00 Dose: 2 mg Lorazepam (Ativan Inj*) 0.5 mg IV PUSH Q6H PRN PRN Reason: ANXIETY Last Admin: 06/20/17 13:28 Dose: 0.5 mg Metformin HCl (Glucophage*) 500 mg PO BID WITH MEALS [facility] Last Admin: 06/23/17 09:08 Dose: Not Given Metoprolol Tartrate (Lopressor Tab*) 50 mg PO BID [facility] Last Admin: 06/23/17 09:02 Dose: 50 mg Morphine Sulfate (Morphine Inj (Syringe)*) 2 mg IV Q4H PRN PRN Reason: PAIN - MILD Last Admin: 06/21/17 19:35 Dose: 2 mg Nicotine (Nicotine Inhaler*) 10 mg INH Q2H PRN PRN Reason: CRAVING Last Admin: 06/21/17 20:14 Dose: 10 mg Nitroglycerin (Nitroglycerin Tab 0.4 Mg*) 0.4 mg SL Q5M PRN PRN Reason: ANGINA Last Admin: 06/22/17 15:20 Dose: 0.4 mg Ondansetron HCl (Zofran Inj*) 4 mg IV Q6H PRN PRN Reason: NAUSEA Last Admin: 06/18/17 16:41 Dose: 4 mg Oxcarbazepine (Trileptal Tab(*)) 600 mg PO BID [facility] Last Admin: 06/23/17 08:59 Dose: 600 mg Ticagrelor (Brilinta*) 90 mg PO BID [facility] Last Admin: 06/23/17 08:59 Dose: 90 mg Topiramate (Topamax(*)) 25 mg PO DAILY [facility] Last Admin: 06/23/17 09:02 Dose: 25 mg Topiramate (Topamax(*)) 50 mg PO BEDTIME [facility] Last Admin: 06/22/17 21:10 Dose: 50 mg Venlafaxine HCl (Effexor Xr Cap*) 75 mg PO DAILY [facility] Last Admin: 06/23/17 09:02 Dose: 75 mg Vital Signs - 8 hr 06/23/17 06/23/17 06/23/17 07:10 08:22 09:00 Temperature 99.2 F Pulse Rate 98 Respiratory 18 16 14 Rate Blood Pressure 125/79 (mmHg) O2 Sat by Pulse 100 Oximetry 06/23/17 06/23/17 09:55 11:55 Temperature Pulse Rate 94 Respiratory 18 Rate Blood Pressure 93/77 (mmHg) O2 Sat by Pulse 99 Oximetry Oxygen Devices in Use Now: None Appearance: 47 yoF in nAD, aAOx3 Eyes: No Scleral Icterus, PERRLA Ears/Nose/Mouth/Throat: NL Teeth, Lips, Gums, Mucous Membranes Moist Neck: NL Appearance and Movements; NL JVP, Trachea Midline Respiratory: Symmetrical Chest Expansion and Respiratory Effort, Clear to Auscultation Cardiovascular: NL Sounds; No Murmurs; No JVD, RRR Abdominal: NL Sounds; No Tenderness; No Distention, No Hepatosplenomegaly Lymphatic: No Cervical Adenopathy Extremities: No Edema, No Clubbing, Cyanosis Skin: No Rash or Ulcers, No Nodules or Sclerosis Neurological: Alert and Oriented x 3, - - unsteady gait, walking without assistance-very unsteady, occasionally tripping back, but catching herself before falling Result Diagrams: 06/23/17 05:23 06/23/17 05:23 Microbiology and Other Data: Microbiology 06/18/17 05:00 Nasal Screen MRSA (PCR)(SEAN) - Final Nasal Mrsa Not Detected Assess/Plan/Problems-Billing Assessment: 47 year old with a history of bi-polar disorder, Diabetes, possible seizures in the past, admitted with STEMI, stats post cath with no stenting, complaining of difficulty walking since the cath. - Patient Problems (1) STEMI (ST elevation myocardial infarction) Comment: Greatest blockage 75% in the RCA urine drug screen for cocaine was negative Medical management especially in setting of subcritical occlusion and med non adherence ASA, brilinta, statin, beta augusto. received 48 hours of heparin drip. On lopressor 50 mg BID- d/w Repeat echo shows posterior wall motion abn-as expected from CT , and EF 35% Lipid panel reveals hypercholesterolemia; continue Lipitor (2) Ataxia Comment: pt states that it occured post cath, improving, but still safety concerns when walking independently. It appears functional as exam and the way pt walk changes with each time she is evaluated. Unable to do MRI due to ear sugery at age of 5. Lyme and SPEP pending, Vit B 12 level WNL. appreciate neuro consult. due to continuation of symptoms will get CTA head and neck Due to the developement of diarrhea will check stool cx/rotavirus testing. ? significance with neuro abnormalities (3) Bipolar disorder Comment: topamax and oxcarbazepine resumed(pt stopped it x 3 weeks prior to her admission) appreciate psych input on medication recommendations (4) Hyponatremia Comment: Improved with IVF. Cont LR at 75 ml/hr pt had been on Trileptal for several years with no hyponatremia in the past. She refuses to consider discontinuation of Trileptal. (5) Leukocytosis Comment: likely stress response from STEMI flu/monospot are negative resolving (6) Diabetes Comment: hba1c 9.5% cont ISS restarted glipizide, metformin (7) Suicidal ideation Comment: admit to involuntary status; needs constant 1:1 observation psych consulted plan for inpatient psych when ready for discharge No SI today (8) DVT prophylaxis Comment: lovenox sc Status and Disposition: inpatient, will need inpatient psych Pt is still too unsteady on her feet to be able to walk independently
[2017-06-23] MEDS ORDERED: Iodixanol* (CONTRAST) 320 MG/ML 100 ML SDV IV ONE (14:20)
--- NOTE | 2017-06-23 16:25 | RAD ---
Indication: Unsteady gait. Contrast: Administered 80.0 ml of VISIPAQUE 320 mg/ml CTA of the neck and head was performed after IV contrast administration. Coronal and sagittal reconstructed images were obtained. The origins of the great vessels are unremarkable. The common carotid arteries are unremarkable. The intracranial carotid arteries demonstrates no significant stenosis. The internal carotid arteries demonstrates no evidence of carotid artery dissection. The intracavernous portions of the internal carotid arteries are unremarkable. The vertebral arteries are codominant. No stenosis is identified. The intracranial circulation demonstrates a hypoplastic A1 segment of the right anterior cerebral artery. This is consistent with a normal variant. The right internal carotid artery extends into the right middle cerebral artery with no evidence of branch occlusion. The left internal carotid artery demonstrates branches into normal A1 and M1 segments. Patent anterior communicating artery is noted. Basilar artery and posterior cerebral arteries are grossly unremarkable with no branch occlusion. No evidence of aneurysmal dilatation is noted. IMPRESSION: No evidence of carotid artery dissection. Absent A1 segment of the right anterior cerebral artery. No branch occlusion is noted. The anterior communicating artery. The posterior circulation demonstrates no aneurysmal dilatation or branch occlusion.
[2017-06-23] MEDS: Atorvastatin* 80 MG TAB PO SCH (21:29)
[2017-06-23] MEDS: Enoxaparin(*) 40 MG/0.4 ML SYR SUBCUT SCH (21:32)
[2017-06-24] MEDS: Insulin LISPRO* 1 UNITS UNIT SUBCUT SCH ×2 (08:52→12:33)
[2017-06-24] MEDS: OXcarbazepine TAB(*) 300 MG PO SCH (08:53)
[2017-06-24] MEDS: Ticagrelor* 90 MG TAB PO SCH (08:53)
[2017-06-24] MEDS: glipiZIDE TAB* 5 MG PO SCH (08:53)
[2017-06-24] MEDS: Venlafaxine EXT RELEASE CAP* 75 MG PO SCH (08:54)
[2017-06-24] MEDS: Metoprolol Tartrate TAB* 50 mg PO SCH (08:54)
[2017-06-24] MEDS: Topiramate TAB(*) 25 MG PO SCH (08:54)
[2017-06-24] MEDS: Aspirin Low Dose CHEW TAB* 81 MG PO SCH (08:54)
[2017-06-24] MEDS: Calcium Carbonate CHEW TAB* 500 MG (TUMS) PO PRN (09:34)
[2017-06-24] MEDS ORDERED: Nicotine PATCH 7 MG/24 HR* PATCH TRANSDERM SCH (10:00)
[2017-06-24] MEDS ORDERED: Sucralfate TAB* 1 GM PO ONE (10:01)
--- NOTE | 2017-06-24 12:51 | PN ---
Subjective Date of Service: 06/24/17 Interval History: Pt feels better, ambulating with a walker. Had (as usually) CP after morning meds, that lasted 5 min and resolved sponantrulsy. EKG unchanged from prior at troponin much lower than before. Diarrhea resolved. Appetite good Family History: Unchanged from Admission Social History: Unchanged from Admission Past Medical History: Unchanged from Admission Objective Active Medications: Acetaminophen (Tylenol Tab*) 650 mg PO Q4H PRN PRN Reason: PAIN Last Admin: 06/23/17 09:56 Dose: 650 mg Al Hydrox/Mg Hydrox/Simethicone (Maalox Plus*) 30 ml PO Q4H PRN PRN Reason: INDIGESTION Aspirin (Aspirin Low Dose Tab*) 81 mg PO DAILY [facility] Last Admin: 06/24/17 08:54 Dose: 81 mg Atorvastatin Calcium (Lipitor*) 80 mg PO 2100 [facility] Last Admin: 06/23/17 21:29 Dose: 80 mg Calcium Carbonate (Tums*) 500 mg PO Q4H PRN PRN Reason: DISCOMFORT Last Admin: 06/24/17 09:34 Dose: 500 mg Device (Nicotine Mouth Piece*) 1 each INH .USE WITH NICOTROL PRN PRN Reason: CRAVING Last Admin: 06/21/17 20:14 Dose: 1 each Dextrose (D50w Syringe 50 Ml*) 12.5 gm IV PUSH .FOR FS < 60 - SS PRN PRN Reason: FS < 60 Enoxaparin Sodium (Lovenox(*)) 40 mg SUBCUT Q24H [facility] Last Admin: 06/23/17 21:32 Dose: 40 mg Glipizide (Glucotrol Tab*) 5 mg PO DAILY [facility] Last Admin: 06/24/17 08:53 Dose: 5 mg Lactated Ringer's (Lactated Ringers 1000 Ml Bag*) 1,000 mls @ 75 mls/hr IV PER RATE [facility] Last Admin: 06/24/17 08:52 Dose: 75 mls/hr Insulin Human Lispro (Humalog*) 0 units SUBCUT ACHS [facility] PRN Reason: Protocol Last Admin: 06/24/17 12:33 Dose: 6 units Loperamide HCl (Imodium Cap*) 2 mg PO .SEE DIRECTIONS PRN PRN Reason: DIARRHEA Last Admin: 06/23/17 09:00 Dose: 2 mg Lorazepam (Ativan Inj*) 0.5 mg IV PUSH Q6H PRN PRN Reason: ANXIETY Last Admin: 06/20/17 13:28 Dose: 0.5 mg Metoprolol Tartrate (Lopressor Tab*) 50 mg PO BID [facility] Last Admin: 06/24/17 08:54 Dose: 50 mg Morphine Sulfate (Morphine Inj (Syringe)*) 2 mg IV Q4H PRN PRN Reason: PAIN - MILD Last Admin: 06/21/17 19:35 Dose: 2 mg Nicotine (Nicotine Inhaler*) 10 mg INH Q2H PRN PRN Reason: CRAVING Last Admin: 06/21/17 20:14 Dose: 10 mg Nicotine (Nicotine Patch 7 Mg/24 Hr*) 1 patch TRANSDERM DAILY [facility] Last Admin: 06/24/17 11:25 Dose: 1 patch Nitroglycerin (Nitroglycerin Tab 0.4 Mg*) 0.4 mg SL Q5M PRN PRN Reason: ANGINA Last Admin: 06/22/17 15:20 Dose: 0.4 mg Ondansetron HCl (Zofran Inj*) 4 mg IV Q6H PRN PRN Reason: NAUSEA Last Admin: 06/18/17 16:41 Dose: 4 mg Oxcarbazepine (Trileptal Tab(*)) 600 mg PO BID [facility] Last Admin: 06/24/17 08:53 Dose: 600 mg Sucralfate (Carafate*) 1 gm PO 0600,1500,2100 [facility] Ticagrelor (Brilinta*) 90 mg PO BID [facility] Last Admin: 06/24/17 08:53 Dose: 90 mg Topiramate (Topamax(*)) 25 mg PO DAILY [facility] Last Admin: 06/24/17 08:54 Dose: 25 mg Topiramate (Topamax(*)) 50 mg PO BEDTIME [facility] Last Admin: 06/23/17 21:32 Dose: 50 mg Venlafaxine HCl (Effexor Xr Cap*) 75 mg PO DAILY [facility] Last Admin: 06/24/17 08:54 Dose: 75 mg Vital Signs - 8 hr 06/24/17 06/24/17 07:28 08:00 Temperature 98.1 F Pulse Rate 92 Respiratory 16 16 Rate Blood Pressure 114/79 (mmHg) O2 Sat by Pulse 100 Oximetry Oxygen Devices in Use Now: None Appearance: 47 yo F in nAD, AAOx3 Eyes: No Scleral Icterus, PERRLA Ears/Nose/Mouth/Throat: NL Teeth, Lips, Gums, Mucous Membranes Moist Neck: NL Appearance and Movements; NL JVP, Trachea Midline Respiratory: Symmetrical Chest Expansion and Respiratory Effort, Clear to Auscultation Cardiovascular: NL Sounds; No Murmurs; No JVD, RRR Abdominal: NL Sounds; No Tenderness; No Distention, No Hepatosplenomegaly Lymphatic: No Cervical Adenopathy Extremities: No Edema, No Clubbing, Cyanosis Skin: No Rash or Ulcers, No Nodules or Sclerosis Neurological: Alert and Oriented x 3, - - wide unsteady gait, ambulating well with a walker Result Diagrams: 06/23/17 05:23 06/23/17 05:23 Microbiology and Other Data: Microbiology 06/18/17 05:00 Nasal Screen MRSA (PCR)(SEAN) - Final Nasal Mrsa Not Detected Assess/Plan/Problems-Billing Assessment: 47 year old with a history of bi-polar disorder, Diabetes, possible seizures in the past, admitted with STEMI, stats post cath with no stenting, complaining of difficulty walking since the cath. - Patient Problems (1) STEMI (ST elevation myocardial infarction) Comment: Greatest blockage 75% in the RCA urine drug screen for cocaine was negative Medical management especially in setting of subcritical occlusion and med non adherence ASA, brilinta, statin, beta augusto. received 48 hours of heparin drip. On lopressor 50 mg BID- d/w Repeat echo shows posterior wall motion abn-as expected from UT , and EF 35% Lipid panel reveals hypercholesterolemia; continue Lipitor Pt is having daily CP in AM either related to Brilina or food/GI. Troponin is lower today and now new EKG changes noted. will start Carfate. Reassurance provided (2) Ataxia Comment: pt states that it occured post cath, improving, walking independently with a walker. It appears functional as exam and the way pt walk changes with each time she is evaluated. Unable to do MRI due to ear sugery at age of 5. Lyme , SPEP, Vit B 12 level WNL. appreciate neuro consult. due to continuation of symptoms will get CTA head and neck obtained on 06/23/17 unremarkable. (3) Bipolar disorder Comment: topamax and oxcarbazepine resumed(pt stopped it x 3 weeks prior to her admission) appreciate psych input on medication recommendations (4) Hyponatremia Comment: Improved with IVF. pt had been on Trileptal for several years with no hyponatremia in the past. She refuses to consider discontinuation of Trileptal. (5) Leukocytosis Comment: likely stress response from STEMI flu/monospot are negative resolving (6) Diabetes Comment: hba1c 9.5% cont ISS restarted glipizide. Metformin on hold post CTA (7) Suicidal ideation Comment: admit to involuntary status; needs constant 1:1 observation psych consulted plan for inpatient psych when ready for discharge No SI today (8) DVT prophylaxis Comment: lovenox sc Status and Disposition: inpatient,ready for inpatient psychiatry
[2017-06-24] MEDS ORDERED: Sucralfate TAB* 1 GM PO SCH (15:00)
[2017-06-24 16:01] VITALS: BP 108/75
--- NOTE | 2017-06-24 22:00 | CONS ---
CONSULTATION REPORT: DATE OF CONSULT: 06/24/17 ATTENDING PHYSICIAN: Dr. Jania Arechiga. CONSULTING PHYSICIAN: Dr. Alex Parikh. REASON FOR CONSULT: Suicidal ideations. SUBJECTIVE HISTORY: Psychiatry is asked to consult on this 47-year-old, single , never , white female with a history of bipolar disorder and borderline personality traits as well as alcohol, cocaine, and methamphetamine use disorders all in sustained remission who is currently admitted to the hospitalist service due to coronary artery disease. Psychiatry was initially asked to consult on 06/20/17 due to suicidal statements that the patient had made. My understanding is that when she came in, she was extremely upset that her family was not here to support her and she was making statements to the effects that life was not worth living. She was initially seen by Dr. Cesar Cueva on 06/20/17 who felt that she was psychiatrically decompensated and would benefit from involuntary admission. Subsequently, she has gone through extensive medical evaluation for elevated troponins and subsequent coronary artery catheterization, which revealed significant occlusion of the right coronary artery. Since then, she has been treated with antiplatelet therapies as well as beta-blockers and she has not been medically cleared for further psychiatric care. At this time, she is doing better medically. When I enter her room, she is sitting with her brother, Jaskaran Frederikc, laughing. I note that she was ambulating with her walker just prior to my interview. She states that her dizziness is improving. She is somewhat surprised to learn about her suicidal statements claiming not to remember anything just after arriving here from [facility]. When asked her brother, he indicates "Oh! She is just a smart ass. She likes getting a reaction out of people." He denies that she is a threat to herself and he is advocating for her discharge back home. The patient does indicate that she quit her psychiatric medications 3 weeks prior to admission because of 30-pound weight gain in 6 months. She indicates that the psychiatric nurse practitioner actually left [facility] and a new one has come on board, which she does not have a relationship with yet. Despite this, she met the nurse practitioner on the day of hospitalization and was planning to resume her psychiatric medications. The patient is strongly denying suicidal or homicidal ideations and she feels that she is safe to return home. She has an appointment within 1 week with her therapist named, Matt, at [facility]. PSYCHIATRIC HISTORY: The patient most recently was on Geodon, Topamax, Effexor , and Trileptal. Past psychiatric meds include Lexapro, Risperdal, lithium, Paxil, Zyprexa, Depakote, and Abilify. She has been seeing her primary care doctor, Dr. Gee Toney, in [place] for Adderall for several years. Her past diagnoses include bipolar disorder and borderline personality disorder. She does have 2 prior psychiatric hospitalization, both in [facility], the last being in October 2014. She has had 4 total suicide attempts via overdose, last being in 2016. SUBSTANCE ABUSE HISTORY: Significant for dependence to alcohol, cannabis, cocaine, and methamphetamine; however, she has been sober since 2008 and did complete inpatient rehab stints at [facility] as well as [facility]. PAST MEDICAL HISTORY: Significant for coronary artery disease with an occluded right coronary artery. She also has type 2 diabetes, questionable seizure disorder, asthma, history of tubal ligation, x2, appendectomy, and left ear surgery. ALLERGIES: To CODEINE, AZITHROMYCIN, CELEXA, and LEXAPRO. FAMILY HISTORY: Denied for mental illness. SOCIAL HISTORY: The patient was born and raised in [place], but now lives in [place]. She has never been . She does have 3 children, 2 twins aged 23 and one 20-year-old. She also has 2 grand kids whom she adores and is looking forward to spending time with. She is a high school graduate and did some college at [employer]. Currently, she is unemployed and on disability. She lives alone in a trailer in [place], [place]. She has no formal legal or history. MENTAL STATUS EXAM: The patient is a middle-aged white female, who appears to be older than her stated age. She has got disheveled matted hair and she is dressed in a patient gown. She does make good eye contact, laughs, smiles appropriately. She is easy to establish a rapport with. Speech has a normal rate, tone, and volume. Mood is euthymic with a full affect. Thought process is linear and goal directed. Thought content is significant for her desire to be discharged so that she can be with her grandchildren. She denies suicidal or homicidal ideations. She denies auditory or visual hallucinations. Insight and judgment are fair given her willingness to follow up with outpatient treatment. Cognitively, she is awake and alert with what would appear to be an average intellect. DIAGNOSES: Are as follows: [place] I: Unspecified bipolar disorder, cocaine, alcohol, cannabis, and amphetamine use disorders, all in sustained remission. [place] II: Borderline personality traits. ASSESSMENT: The patient is a 47-year-old single, never white female with a history of bipolar disorder as well as polysubstance dependence in sustained remission, who arrived as a transfer from [facility] with chest pain and elevated troponin who subsequently made suicidal statements. Initially, she was evaluated by the psychiatry service, who felt that she would benefit from behavioral science transfer, but now that she is medically cleared and back on her psychiatric medications for several days, she appears to be stable and wanting to receive care in a less restrictive setting. Her brother is present and supportive of her discharge. Both the patient and the brother feel that she is safe and she has followup appointments in place at [facility]. I have left a message with her primary care provider, Dr. Gee Toney, in [place] to give him further history. RECOMMENDATIONS TO PRIMARY TEAM: The patient is taken off of her one to one. I do not believe that she would benefit from involuntary psychiatric hospitalization and she has followup in place at [facility]. Psychiatry advises her to be discharged. She is psychiatrically cleared from our perspective and we will no longer be following along, although we can be reconsulted in the event of any changes in her presentation. Psychiatry would like to thank the attending team for the interesting consult. [id number]/[facility] #: [id number] BHAKTI
--- NOTE | 2017-06-25 12:32 | DS ---
CC: Miguel Benavides; Dr. Bernal; Dr. Huerta; Dr. Funes; Dr. Cueva; Dr. Parikh DISCHARGE SUMMARY: DATE OF ADMISSION: 06/18/17 DATE OF DISCHARGE: 06/24/17 DISCHARGE DIAGNOSES: 1. Acute ST elevation myocardial infarction status post cardiac catheterization that showed impression "two-vessel disease with inferior wall ST elevation infarct with intermediate PDA stenosis, normal flow with marked improvement with resolution of chest pain symptoms in the research laboratory technician after institution of medical therapy in a patient with medication noncompliance and relative contraindication for stenting. She will be treated medically." 2. Unsteady gait. Possibility of functional problem due to the patient's bipolar disease and borderline disease was entertained by neurology technical healthcare consultant. 3. Exacerbation of the patient's bipolar disease during the hospital stay with voicing suicide ideation. The patient was consulted by Psychiatry and eventually cleared by Psychiatry for discharge. 4. Hyponatremia that improved with intravenous fluid hydration. 5. Leukocytosis, likely response to myocardial infarction with negative infectious workup. SECONDARY DIAGNOSES: 1. History of hypertension. 2. History of bipolar disease. Please note that the patient has decided to stop her medications for diabetes and bipolar disease 3 weeks prior to hospitalization. 3. Attention deficit hyperactivity disorder. 4. History of asthma. 5. Dyslipidemia. MEDICATIONS AT DISCHARGE: Include: 1. Albuterol inhaler on a p.r.n. basis. 2. Aspirin 81 mg daily. 3. Lipitor 80 mg daily. 4. Glipizide 5 mg daily. 5. Insulin Humulin as previously used. 6. Metformin 500 mg b.i.d. 7. Metoprolol tartrate 50 mg b.i.d. 8. Singulair 10 mg daily. 9. Trileptal 600 mg b.i.d. 10. Carafate 1 g with meals 3 times a day. 11. Brilinta 90 mg b.i.d. 12. Topamax 50 mg at bedtime, 25 in the morning. 13. Effexor XR 75 mg daily. 14. Geodon 20 mg daily. CONSULTATIONS DURING THE HOSPITAL STAY: Included: 1. Dr. Bernal and Dr. Funes from Interventional Cardiology. 2. Dr. Cueva and Dr. Parikh from Psychiatry. 3. Dr. Huerta from Neurology. LABORATORY DATA AND STUDIES PERFORMED DURING THE HOSPITAL STAY: Included: The patient's troponin on presentation was 0.4. It peaked at 14 on 06/19/17 that was down to 4.09 on 06/24/17 and continues to progressively get better and have lower level despite the patient having basically daily chest pains throughout her hospital stay. Basic metabolic panel obtained, the last one on 06/23/17 showed sodium of 131, potassium 3.9, chloride 102, carbon dioxide 21, BUN 12, creatinine 0.71. The patient's hemoglobin A1c was noted to be 9.5 on 06/18/17. CBC obtained on 06/23/17, white blood cell count of 12.2, hemoglobin of 12.0, hematocrit 35, and platelets of 275,000. ESR was 68. The patient's TSH was noted to be 0.67 on 06/20/17. Cholesterol profile shows triglycerides of 262, cholesterol total of 222, LDL 123, and HDL 46. The patient had serum protein electrophoresis obtained which showed "no apparent monoclonal protein on serum electrophoresis." At admission, the patient had opiates and benzodiazepines positive on urine drug screen. Cocaine was negative. The patient's microbiology study showed negative serology for Lyme disease, mono screen and influenza. Her stool tests were negative for rotavirus and negative for Shiga toxin [address] obtained on 06/20/17. Impression. "No acute intracranial pathology." CT angiogram of the head obtained on 06/23/17 showed no evidence of carotid artery dissections. Absent A1 segment of the right anterior cerebral artery. No branch occlusion is noted. The anterior communicating artery, the posterior circulation demonstrates known aneurysmal dilatation or branch occlusion." PROCEDURES PERFORMED DURING THE HOSPITAL STAY: Included cardiac catheterization performed by Dr. Bernal on 06/18/17 with angiography showing as below. "The RCA is tortuous, dominant, moderate, has a mid 30% stenosis. The PDA is moderate with a tubular proximal 75% stenosis extending back to the origin. The PDA has ADAN-3 flow. The left main is normal in length and size, no evident stenosis. The LAD is moderate, extends to the apex, has several small diagonals. The third diagonal bifurcates, proximal to the bifurcation there is a tubular 80% stenosis extending into the bifurcation. It is too small for percutaneous revascularization. The LAD beyond the third diagonal has a small tubular 40% to 50% stenosis. Distal LAD has ADAN-3 flow. Circumflex is not dominant. It is moderate, supplies a small first marginal and 2 small distal posterolaterals. Circumflex has mild luminal irregularity without significant stenosis. The estimated EF was noted to be 45%. Conclusion: "Two-vessel disease with inferior wall ST elevation infarct with intermediate PDA stenosis, normal flow, marked improvement, resolution of chest pain symptoms in the research laboratory technician after institution of medical therapy in a patient with medication noncompliance, and relative contraindication for stenting. She will be treated medically. LV systolic function is 45%. Hypertension with elevated LVDP. Left coronary imaging was adequate, although nonselective because of inability to selectively engage the left main due to right radial artery spasms limiting catheter movement and torque. Successful right radial artery access." HOSPITALIZATION COURSE: Stephany Frederick is a 47-year-old lady with history of diabetes, hypertension, dyslipidemia and bipolar disease who stopped most of her medications 3 weeks prior to presenting to the hospital with multiple complaints including substernal chest burning and some shortness of breath. She was transferred from [facility] to the emergency department at [facility] and was noted to have ST elevation SD. Dr. Bernal took the patient to the research laboratory technician and performed cardiac catheterization which showed EF of 45% as well as two-vessel disease. One of the vessels was too small to be stented. That responded well to the medical therapy. Please note that due to the patient's history of medical noncompliance, she had a relative contraindication to stenting, which was not performed. Post cardiac catheterization, the patient was placed on Brilinta, aspirin and Lipitor. She started having daily chest pains and shortness of breath whenever the patient was given Brilinta. That was thought to be due to side effect of Brilinta and usually disappeared after the patient drank a cup a coffee, which appears to be the usual reaction to the medication. Multiple EKGs were obtained during those days and followup troponins also. The patient's troponins continued to trend down and EKGs were unremarkable despite the patient continuously having morning chest pains that resolved after drinking coffee. The patient also was started on Carafate with good results. A couple of days into the patient's hospital stay, the patient became very upset with being in the hospital. She voiced suicidal ideation. Psychiatry was consulted in order for the patient to be in need of inpatient psychiatric evaluation. The patient's medications for bipolar disease were started and after her observation on medical floor, she actually was reevaluated by Dr. Parikh on the day of discharge. She was noted to be more controlled with her bipolar disease and cleared for going home. The patient was noted to have unsteady gait after the cardiac catheterization. It should be noted that she actually had problems with climbing into her van 3 weeks prior to her admission. Due to her history of having left inner ear surgery at the age of 65 years old, we were unable to perform MRI of the brain. A CT angiogram of the head and neck as well as CT of the brain was unremarkable. An evaluation by Neurology with Dr. 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 The patient was encouraged. She was evaluated by physical therapy and was cleared to go home with a rolling walker. At discharge, unfortunately the patient is at high risk for readmission due to her daily chest pain. I reassured the patient that if the chest pain occurs after she uses Brilinta and goes away within half an hour after taking Brilinta with a cup of coffee, then it is likely not to be cardiac related. The patient was also encouraged to take all of her medications as prescribed including Carafate. Unfortunately, it is possible this patient will have recurrent chest pain for which she will need to be evaluated in the emergency department in the near future. At this point, due to the patient's history of medication noncompliance, she was not a candidate for cardiac stenting and she does have known coronary artery disease. Please also note that the patient was treated with nitroglycerin during her hospital stay with no marked improvement in any of her symptoms. At discharge, the patient is recommended to follow up with Dr. Toney, the patient's primary care provider, in approximately 4 to 7 days. The patient is also recommended to follow up with Dr. Bernal with a scheduled appointment on 07/01/17. For physical exam at the time of discharge, please see daily progress notes. [id number]/[facility] #: [id number] MTDD
== END 2017-06-24 17:37 | disposition home or self-care (01) | DRG 190 ==
LOC: MEDTELE 02:08 → ICU 09:12 → MEDTELE 12:00 → OBSVTOIN 06-20 12:00
PROVIDERS: ADMIT Hospitalist; ATTEND Internal Medicine
PROC: 4A023N7 Measurement of Cardiac Sampling and Pressure, Left Heart, Percutaneous Approach (ICD-10-PCS; principal; 2017-06-20)
PROC: B2111ZZ Fluoroscopy of Multiple Coronary Arteries using Low Osmolar Contrast (ICD-10-PCS; 2017-06-20)
PROC: B2151ZZ Fluoroscopy of Left Heart using Low Osmolar Contrast (ICD-10-PCS; 2017-06-20)
DX: I21.19 ST elevation (STEMI) myocardial infarction involving other coronary artery of inferior wall (principal); F14.20 Cocaine dependence, uncomplicated; I95.9 Hypotension, unspecified; E87.1 Hypo-osmolality and hyponatremia; E11.9 Type 2 diabetes mellitus without complications; F15.20 Other stimulant dependence, uncomplicated; E86.1 Hypovolemia; D72.829 Elevated white blood cell count, unspecified; F31.9 Bipolar disorder, unspecified; F90.9 Attention-deficit hyperactivity disorder, unspecified type; J45.909 Unspecified asthma, uncomplicated; F17.210 Nicotine dependence, cigarettes, uncomplicated; E78.00 Pure hypercholesterolemia, unspecified; I25.10 Atherosclerotic heart disease of native coronary artery without angina pectoris; F60.3 Borderline personality disorder; E66.3 Overweight; F12.20 Cannabis dependence, uncomplicated; F10.20 Alcohol dependence, uncomplicated; Y90.9 Presence of alcohol in blood, level not specified; E78.5 Hyperlipidemia, unspecified; I10 Essential (primary) hypertension; Z66 Do not resuscitate; M25.512 Pain in left shoulder; R06.02 Shortness of breath; Y92.239 Unspecified place in hospital as the place of occurrence of the external cause; R27.0 Ataxia, unspecified; T45.525A Adverse effect of antithrombotic drugs, initial encounter; R19.7 Diarrhea, unspecified; Z91.5 Personal history of self-harm; Z56.0 Unemployment, unspecified; Z98.51 Tubal ligation status; Z88.5 Allergy status to narcotic agent; Z88.8 Allergy status to other drugs, medicaments and biological substances; Z91.14 Patient's other noncompliance with medication regimen; Z88.1 Allergy status to other antibiotic agents; Z82.49 Family history of ischemic heart disease and other diseases of the circulatory system; Z68.33 Body mass index [BMI] 33.0-33.9, adult; Z79.82 Long term (current) use of aspirin; Z79.02 Long term (current) use of antithrombotics/antiplatelets; Z79.4 Long term (current) use of insulin
CPT/HCPCS: 36415; 70450; 70496; 70498; 80048; 80053; 80061; 80307; 82550; 82553; 82565; 82607; 83036; 83735; 84155; 84165; 84436; 84443; 84479; 84484; 84520; 84702; 85025; 85027; 85652; 85730; 86140; 86308; 86618; 87045; 87046; 87077; 87425; 87502; 87641; 87899; 93005; 93308; 99156; 99157; 99406; A9270-GY; C1769; G0378; G8978-GP-CI; G8978-GP-CJ; G8979-GP-CH; G8979-GP-CI; G8987-GO-CJ; G8988-GO-CI; J1644; J1650; J2060; J2250; J2270; J2405; J3010; J3475; Q9967

== ENCOUNTER 2019-04-27 05:59 | Inpatient (IN) | payer OTHER ==
[2019-04-27] MEDS ORDERED: Enoxaparin(*) 80 MG/0.8 ML SYR SUBCUT ONE (06:05)
[2019-04-27] MEDS ORDERED: Ondansetron INJ* 2 MG/ML VIAL IV PRN (06:07)
[2019-04-27] MEDS ORDERED: Nitroglycerin TAB 0.4 MG* 0.4 MG TAB SL PRN (06:07)
--- NOTE | 2019-04-27 06:36 | HP ---
HISTORY AND PHYSICAL: DATE OF ADMISSION: 04/27/19 PRIMARY CARE PROVIDER: The patient could not tell me her primary care provider' s name or her primary igniter capper's name. CHIEF COMPLAINT: Chest pain. HISTORY OF PRESENT ILLNESS: This is a 49 year old female with past medical history of coronary artery disease status post drug-eluting stent placement in September of 2017. The patient does not know the location of the stent placement. This was done at [facility]. Unfortunately, our computer system is down and I am unable to check her prior records. She also has a history of diabetes , hypertension, who now presents to the hospital because of chest pain. The patient reports that her chest pain started shortly after she was carrying her groceries up the driveway, the pain was located at the left chest, described as a burning as well as a pressing sensation at the left chest, which radiates to the left shoulder and the left arm. The pain has worsened over the course of the past 2 hours. Pain initially was 4/10 and then is described as 10/10, associated with shortness of breath. There was no associated diaphoresis or palpitations. She is having nausea; however, no vomiting. The patient was seen in the [place] [facility], at which point they noted that the patient is noted to have elevated cardiac enzyme of troponin of 0.05 and thus they decided to transfer the patient to the our hospital for direct transfer. In the emergency room, the patient was given an insulin Regular 5 units one time, lorazepam 2 mg, nitroglycerin 0.4 mg, aspirin 324 mg, and IV fluids. PAST MEDICAL HISTORY: Type 2 diabetes, hypertension, hyperlipidemia, asthma, ADD, bipolar disorder, anxiety. PAST SURGICAL HISTORY: Appendectomy and . MEDICATIONS: Home medications include: 1. Glipizide 2.5 mg daily. 2. Metformin 500 mg twice a day. 3. Oxcarbazepine 600 mg b.i.d. 4. Montelukast 10 mg daily. 5. Topiramate 50 mg at bedtime and topiramate 25 mg daily. 6. Venlafaxine 75 mg at bedtime. 7. Albuterol 1 puff as needed. 8. Lantus 12 units subcu daily. 9. Lipitor 80 mg daily. 10. Plavix 75 mg daily. 11. Aspirin 81 mg daily. ALLERGIES: Include CITALOPRAM, CODEINE, ESCITALOPRAM, and AZITHROMYCIN. FAMILY HISTORY: Mother: Epilepsy, diabetes, heart issues. Father: Amyloidosis. SOCIAL HISTORY: The patient lives at home alone. Smokes 4 cigarettes a day, occasional alcohol use. REVIEW OF SYSTEMS: The patient does not have any fever, no chills, no sore throat, no changes in her hearing, vision, no blurry vision, no ear aches. Cardiovascular: See HPI. She does not have any cough, no sputum production. She did not have any abdominal pain, is having nausea; however, no vomiting, no diarrhea. Otherwise, a full review of system was done and it was negative. PHYSICAL EXAMINATION GENERAL: This is a well-developed, well-nourished female, lying in bed, in no acute distress. VITAL SIGNS: Blood pressure is 125/85, heart rate of 72, temperature of 98F, respiratory rate 16, pulse ox of 98% on room air. HEENT: Pupils are equal, round, reactive to light., atraumatic, normocephalic. LUNGS: There is no tachypnea, no use of accessory muscles. Lungs are clear without any wheezing, rales or rhonchi. HEART: There is no chest wall tenderness, regular rhythm, no murmurs, rubs, or gallops. ABDOMEN: Normoactive bowel sounds in all four quadrants. Abdomen is soft, nontender, nondistended. EXTREMITIES: No lower extremity edema. Radial pulses 2+ bilaterally. There is no clubbing, cyanosis or edema. NEUROLOGICAL: She is awake, alert, oriented x3 with no focal neurological deficit. PSYCHIATRIC: The patient is mildly anxious, otherwise no thoughts of hurting herself or anyone else. DIAGNOSTIC STUDIES/LAB DATA: Troponin of 0.02 and troponin #2 of 0.05. Sodium 136, potassium of 3.8, chloride of 98, carbon dioxide of 27, BUN 18, creatinine of 0.9, calcium of 9.0. AST of 17, ALT of 34, alkaline phosphatase 176. WBC of 7.95, hemoglobin of 12.9, hematocrit of 39.3, platelets of 296. EKG shows sinus tachycardia at heart rate of 115, with no acute ST-T elevation, T- wave inversions noted in lead II, III, aVF. IMPRESSION AND PLAN: 1. Non-ST elevation myocardial infarction in a patient with history of coronary artery disease with drug-eluting stent. I will get a repeat EKG, third troponin has also been ordered. Continue aspirin, Plavix, Lipitor. I have ordered Lovenox 1 dose weight based. The patient will require a cardiology consultation in the morning and echocardiogram has also been ordered. Check Lipid profile. 2. Diabetes: Continue Lantus, start sliding scale, continue glipizide. Hold metformin. Check hemoglobin A1c. 3. History of mental illness, bipolar disorder, and anxiety: Continue home regimen. 4. Hypertension: We will consider starting the patient on a beta augusto as well as lisinopril given pending further blood work as well as vitals. 5. DVT prophylaxis: Sequential compression device. [id number]/[facility] #: [id number] BHAKTI
[2019-04-27] MEDS ORDERED: Dextrose 50% VIAL 50 ml IV PUSH PRN (06:46)
[2019-04-27 07:05] LABS: Troponin I 0.19 ng/mL (<0.03)
[2019-04-27] MEDS ORDERED: Insulin LISPRO* 1 UNITS UNIT SUBCUT SCH (07:30)
[2019-04-27 07:36] LABS: Anion Gap 5 mmol/L (2-11); BUN/Creatinine Ratio 27.9 (8-20); Blood Urea Nitrogen 17 mg/dL (6-24); CO2 Carbon Dioxide 27 mmol/L (22-32); Calcium 8.7 mg/dL (8.6-10.3); Chloride 105 mmol/L (101-111); Cholesterol 245 mg/dL; EGFR African American 125.6 (>60); EGFR Non-African American 103.8 (>60); Glucose 171 mg/dL (70-100); LDL Cholesterol 169 mg/dL; Potassium 3.8 mmol/L (3.5-5.0); Sodium 137 mmol/L (135-145); Triglycerides 137 mg/dL; Troponin I 0.16 ng/mL (<0.03)
[2019-04-27 07:43] LABS: ABS Basophils 0.1 10^3/ul (0-0.2); ABS Eosinophils 0.4 10^3/ul (0-0.6); ABS Lymphocytes 2.7 10^3/ul (1.0-4.8); ABS Monocytes 0.6 10^3/ul (0-0.8); Hematocrit 37 % (35-47); Hemoglobin 12.7 g/dL (12.0-16.0); Lymphocyte % 34.7 %; Mean Corpuscular HGB Conc 35 g/dL (31-36); Mean Corpuscular Hemoglobin 30 pg (27-31); Mean Corpuscular Volume 86 fL (80-97); Mean Platelet Volume 8.5 fL (7.4-10.4); Platelet Count 249 10^3/uL (150-450); Red Blood Count 4.26 10^6 /uL (3.70-4.87); Red Cell Distribution Width 13 % (10-15); White Blood Count 7.7 10^3/uL (3.5-10.8)
[2019-04-27 07:44] LABS: Eosinophil % 4.7 %; Nucleated Red Blood Cells % 0.1
--- NOTE | 2019-04-27 07:50 | PN ---
Subjective Date of Service: 04/27/19 Interval History: Transferred early this morning from [facility] for concern for NSTEMI with h/o CINDI. Pending cardiology evaluation. Troponin increasing. Patient denies chest pain. States she was very anxious at [facility], which is when her chest pain was the worst, but since receiving Ativan, she only feels somewhat sleepy. Denies diaphoresis, SOB, light headedness. Objective Active Medications: Aspirin (Aspirin Ec Tab*) 81 mg PO DAILY [facility] Atorvastatin Calcium (Lipitor*) 80 mg PO BEDTIME [facility] Clopidogrel Bisulfate (Plavix Tab*) 75 mg PO DAILY [facility] Dextrose (Dextrose 50% Vial 50 Ml*) 25 ml IV PUSH .FOR FS < 60 - SS PRN PRN Reason: FS < 60 Last Admin: 04/27/19 07:30 Dose: 25 ml Glipizide (Glucotrol Xl*) 2.5 mg PO DAILY [facility] Insulin Glargine (Lantus(*)) 12 units SUBCUT DAILY [facility] Insulin Human Lispro (Humalog*) 0 units SUBCUT ACHS [facility]; Protocol Last Admin: 04/27/19 07:28 Dose: Not Given Montelukast Sodium (Singulair Tab*) 10 mg PO DAILY [facility] Nitroglycerin (Nitroglycerin Tab 0.4 Mg*) 0.4 mg SL Q5M PRN PRN Reason: CHEST PAIN Ondansetron HCl (Zofran Inj*) 4 mg IV Q6H PRN PRN Reason: NAUSEA/VOMITING Oxcarbazepine (Trileptal Tab(*)) 600 mg PO BID [facility] Topiramate (Topamax(*)) 50 mg PO BEDTIME [facility] Topiramate (Topamax(*)) 25 mg PO DAILY [facility] Venlafaxine HCl (Effexor Tab (Nf)) 75 mg PO BEDTIME [facility] Vital Signs - 8 hr 04/27/19 06:04 Temperature 98 F Pulse Rate 107 Respiratory 20 Rate Blood Pressure 102/70 (mmHg) O2 Sat by Pulse 99 Oximetry Oxygen Devices in Use Now: None Appearance: tired-appearing, NAD, alert and interactive, speaking in full sentences Eyes: No Scleral Icterus Ears/Nose/Mouth/Throat: Clear Oropharnyx, Mucous Membranes Moist Neck: NL Appearance and Movements; NL JVP, Trachea Midline Respiratory: Symmetrical Chest Expansion and Respiratory Effort, Clear to Auscultation Cardiovascular: NL Sounds; No Murmurs; No JVD, RRR Abdominal: NL Sounds; No Tenderness; No Distention, No Hepatosplenomegaly Lymphatic: No Cervical Adenopathy Extremities: No Edema Skin: No Rash or Ulcers Neurological: Alert and Oriented x 3, NL Sensation, NL Gait Result Diagrams: 04/27/19 05:55 04/27/19 05:55 Assess/Plan/Problems-Billing Assessment: 49W with CAD s/p CINDI, active tobacco use, DM2, HTN, asthma, bipolar disorder, ADD, anxiety, is transferred from [facility] for concern for NSTEMI in setting of complete medication nonadherence. - Patient Problems (1) NSTEMI (non-ST elevated myocardial infarction) Comment: - cont home DAPT, atorvastatin 80mg - received 1 dose of therapeutic lovenox this AM - pending cardiology - pending TTE - cont tele (2) Bipolar disorder Comment: - ? on antiseizure meds - Topamax and oxcarbazepine - cont venlafaxine (3) Diabetes Comment: - f/u A1c - hold home metformin/glipizide - cont short-acting ISS (4) Tobacco abuse Comment: - NRT
[2019-04-27] MEDS: OXcarbazepine TAB(*) 300 MG PO SCH ×2 (08:37→21:16)
[2019-04-27] MEDS: Aspirin EC TAB* 81 MG TAB.EC PO SCH (08:37)
[2019-04-27] MEDS: Clopidogrel TAB* 75 MG PO SCH (08:37)
[2019-04-27] MEDS: Topiramate TAB(*) 25 MG PO SCH ×2 (08:37→21:16)
[2019-04-27] MEDS ORDERED: glipiZIDE TAB.XL* 2.5 MG PO SCH (09:00)
[2019-04-27] MEDS ORDERED: Metoprolol Succinate XL TAB* 25 MG PO SCH (09:00)
[2019-04-27] MEDS ORDERED: Montelukast Sodium TAB* 10 MG PO SCH (09:00)
[2019-04-27] MEDS ORDERED: Insulin GLARGINE(*) 1 UNITS UNIT SUBCUT SCH (09:00)
[2019-04-27] MEDS ORDERED: Influenza VAC *QUAD* 2019-20* 0.5 ML SYRINGE IM ONE (11:00)
[2019-04-27] MEDS ORDERED: Pneumococcal *Vac Polyvalent 0.5 ML VIAL IM ONE (11:00)
[2019-04-27 11:59] LABS: Glucose Confirmatory 400 mg/dL (70-100)
[2019-04-27 12:11] LABS: Troponin I 0.38 ng/mL (<0.03)
[2019-04-27] MEDS: Insulin LISPRO* 1 UNITS UNIT SUBCUT SCH ×2 (12:25→17:47)
--- NOTE | 2019-04-27 12:53 | CONS ---
CONSULTATION REPORT: DATE OF CONSULT: 04/27/19 ATTENDING PHYSICIAN: Dr. Isreal Todd, Cardiology* (dictated by Heidi Okeefe NP). REASON FOR CONSULT: Chest pain, troponin elevation. CHIEF COMPLAINT: Chest pain, shortness of breath. HISTORY OF PRESENT ILLNESS: This is a pleasant 49-year-old female patient with a notable history of coronary artery disease with prior inferior STEMI on , treated medically due to medication nonadherence; mild mitral regurgitation ; systolic heart failure; bipolar disorder; diabetes. The patient presented to [facility] on 04/27/19 at 0100 due to ongoing complaints of substernal burning chest pain radiating to her left side of the neck, left arm with associated shortness of breath. Upon further inquiry, the patient states that she has been experiencing exertional chest pain with more than typical activity since February. She adds that her first episode occurred while shoveling snow and resolved with rest. Over the past week, she has noticed an increase in symptom frequency. She adds that on Wednesday while walking 2 miles to store she developed substernal burning chest pain with associated shortness of breath. She went to a local pharmacy at that time and adds that blood pressure was elevated with noted elevated pulse rate. She states that she rested and then eventually chest pain resolved. Yesterday, while walking home from the grocery store, she was carrying her groceries up her driveway which is on a steep incline when she developed substernal burning chest pain radiating down her left arm and her left neck with associated shortness of breath. She states she took a rescue inhaler with no relief of symptoms. She rested for 15 to 20 minutes; however, chest pain did not improve, thus she presented to [facility]. While being evaluated in the emergency department, troponin was elevated, she was noted to be tachycardic, thus she was transferred to [facility] for further evaluation for probable NSTEMI. In the past, there has been clear medical documentation of medication nonadherence. The patient states and readily admits that she has not been taking any of her medications except Effexor since December of 2018. She adds that unfortunately due to her bipolar disorder and anxiety/depression, she started to miss her medications including aspirin and Plavix and states that she did not know what to do, so she stopped taking them. She seems interested in taking medications, although she adds that she has been feeling hopeless and a desire to not live because she thinks she is "going through menopause." She also readily admits to avoiding seeing her primary doctor due to this concern of menopause. She denies syncope. Reports occasional dizziness. She states that in the past when she was on beta-augusto therapy she became hypotensive, dizzy and actually was falling, thus she was taken off metoprolol therapy in March of 2018. She denies recent illness, infection, edema, weight gain, orthopnea. Currently , she is chest pain- free. Last episode of chest pain was during the venue manager hours while in the ambulance being transferred from [facility] to [facility]. She adds that administration of nitroglycerin resolved symptoms. Last echocardiogram according to our medical records was on 06/22/17; per report LVEF 35% to 40% with severe hypokinesis to akinesis of the posterior wall , mild-to- moderate hypokinesis elsewhere with mild mitral regurgitation. Last ischemic evaluation was on 10/01/17 at [facility] per left heart catheterization report: 1. LAD; mid vessel lesion 45% stenosis. 2. Left circumflex; there was a distal lesion of 85% stenosis. This was felt culprit for the patient's anginal symptoms, thus that time she underwent PTCA, CINDI with overlapping stents to the mid and distal left circumflex. 3. Right coronary artery; large, moderately angulated, proximal lesion 50% stenosis. Right PDA 50% stenosis. PAST MEDICAL HISTORY: 1. Coronary artery disease. 2. Inferior STEMI in June 2017. 3. Medication nonadherence. 4. Bipolar disorder. 5. Hyperlipidemia. 6. Ongoing tobacco abuse. 7. Type 2 diabetes mellitus. 8. Hypertension. 9. Systolic heart failure. 10. Mitral regurgitation. PAST SURGICAL HISTORY: Includes PTCA, CINDI x2 to mid and distal left circumflex in September of 2017 in overlapping fashion. HOME MEDICATIONS: The patient reports taking Effexor as prescribed, otherwise has been noncompliant aspirin and clopidogrel since December of 2018. ALLERGIES: Listed include CODEINE, AZITHROMYCIN, CITALOPRAM, LEXAPRO. Please note that the patient denies allergy to contrast dye or shellfish. FAMILY HISTORY: Noncontributory. SOCIAL HISTORY: The patient is single. She has 1 living son. She resides at home alone. She consumes 4 cigarettes a day. Denies drug use or alcohol use. She lives a fairly active lifestyle given she has to walk to all of her appointments and stores and so forth. REVIEW OF SYSTEMS: All systems have been reviewed and otherwise negative except as above mentioned in the HPI. PHYSICAL EXAM: Temperature is 98.3, pulse is 90, respirations 16, oxygenation 97% on room air, blood pressure 123/79. Her blood pressure at [facility] was 169/ 102. DIAGNOSTIC STUDIES/LAB DATA: Blood work obtained at [facility] on : Sodium 137, potassium 3.8, chloride 105, carbon dioxide 27, BUN 17, creatinine 0.61. Troponin #4 is 0.19, please note it has not peaked. LDL 169. Medical records from [facility] were reviewed. Labs obtained at [facility] were also reviewed. Her troponin at that time was 0.05. AST and ALT were normal. 1. EKG, 04/26/19 at 2232, reviewed; sinus tachycardia with minimal inferolateral ST segment depression. No ST segment elevation appreciated. 2. ECG, 04/27/19, reviewed; sinus rhythm, rate 93 with improvement of minimal lateral ST segment depression. No ST segment elevation appreciated. There are inferolateral T-wave abnormalities noted. ASSESSMENT AND PLAN: 1. Complaints of exertional chest pain representing anginal equivalent with minimal troponin elevation. Blood pressure at outlined facility was 169/102. The patient reports medication nonadherence since December of 2018, which she contributes to progression of her mental health decompensation which she attributes to menopause. At this current time, she is chest pain-free. Last episode was during the venue manager hours en route to [facility]. Troponin has not peaked; however, has essentially plateaued at 0.19. The patient has a history of coronary artery disease. She underwent PTCA, drug- eluting stent placement x2 in overlapping fashion to mid and distal left circumflex in September of 2017 with known moderate LAD and RCA lesion. She has been off all of her cardiac medications since at least December of 2018. At this current time, we would recommend updating echocardiogram given known history of systolic heart failure. Her tachycardia could be a compensatory mechanism, thus we would avoid initiating beta blockade therapy until echo is updated. I went over the importance of medication adherence with the patient. She seemed engaged in conversation and expressed willingness to attempt to be compliant with medications. Given this, we recommend continuing clopidogrel 75 mg a day in combination with aspirin 81 mg a day, Lipitor 80 mg a day, and we will readdress beta blockade therapy after echocardiogram. She would benefit from an eventual ischemic evaluation; however, given known medication nonadherence and the patient's inability to commit as to whether or not she would be adherent with medications at this time, we would not pursue cardiac catheterization. This can certainly be reevaluated depending upon the patient' s clinical course. Of note, she had expressed a desire to not live due to believing she is going through menopause. She admits to avoidance of her primary doctor due to this. She would probably benefit from inpatient psych eval and we will discuss this with primary team. 2. History of systolic heart failure. Historically, LVEF 35% to 40% on June 2017 echocardiogram. She appears compensated on physical examination. She is not on any medication at this time. We will update echo and reevaluate. Tachycardia could be a compensatory mechanism. 3. Sinus tachycardia. Etiology not clear given history of systolic heart failure. We will update echocardiogram and D-dimer. 4. History of hyperlipidemia. LDL 169. Now on high-intensity statin therapy. Recommend a goal LDL less than 70. 5. History of coronary artery disease, on aspirin, Plavix, statin therapy. We will readjust beta blockade therapy after echo. 6. Disposition: Pending course. The patient is full code. Dr. Todd has personally seen and examined the patient and agrees with the above assessment and plan. HEIDI OKEEFE NP [id number]/[facility] #: [id number] BHAKTI
--- NOTE | 2019-04-27 14:47 | ECHO ---
*[facility]* [place] [address] Fax #: [phone] Transthoracic Echocardiogram Patient: Stephany Frederick : 1970 Study Date: 04/27/2019 Age: 49 Gender: F HR: 94 bpm Height: 62 in /157.5 cm BSA: 1.79 m^2 Weight: 170.6 lb /77.6 kg BMI: 31.3 kg/m^2 *Collection Manager: * Zoe Zelaya [facility] *Referring Physician: * Oma Lakhani *Reading Physician: * Isreal Todd MD Indications: Chest Pain, unspecified. History: Asthma. PMH: Myocardial infarction. Risk factors: Hypertension. Diabetes mellitus. Dyslipidemia. Labs, prior tests, procedures, and surgery: Catheterization (September 2017). There was a stenosis which was treated with a stent. Conclusions Summary: - Left ventricle: Systolic function is moderately reduced. The estimated ejection fraction is 25-30%. Systolic function is sligtly worse from the study of June 2017 with more pronounced anteroseptal hypokinesis. - Mitral valve: There is mild regurgitation. - Tricuspid valve: There is mild regurgitation. Study data: Transthoracic echocardiogram. Procedure: Transthoracic echocardiography was performed. Image quality was good. Complete 2D, spectral Doppler, and color flow Doppler. Location: Bedside. Patient status: Inpatient. Patient room number: 444-02. Comparison is made to the study of June 2017. Rhythm: Normal sinus rhythm. Findings Left ventricle: The cavity size is normal. Wall thickness is at the upper limits of normal. Systolic function is moderately reduced. The estimated ejection fraction is 25-30%. Systolic function is sligtly worse from the study of June 2017 with more pronounced anteroseptal hypokinesis. Regional wall motion abnormalities: Hypokinesis of the basal-midinferoseptal myocardium. Akinesis of the basal-midanterolateral myocardium. Hypokinesis of the inferolateral and inferior myocardium. Hypokinesis of the basalanteroseptal myocardium. Akinesis of the basal inferoseptal, mid inferior, mid inferolateral, and basal anterolateral myocardium; hypokinesis of the basal and apical anterior, basal anteroseptal, mid inferoseptal, basal and apical inferior, basal inferolateral, mid anterolateral, apical septal, and apical lateral myocardium. There is no consistent Doppler evidence of clinically significant diastolic dysfunction. Right ventricle: The cavity size is normal. Systolic function is normal. Systolic pressure is within the normal range. Left atrium: The atrium is normal in size. Right atrium: The atrium is normal in size. Mitral valve: The Mitral valve annulus appears mildly calcified. The leaflets are mildly thickened. There is no evidence of stenosis. There is mild regurgitation. Aortic valve: Poorly visualized. The leaflets are mildly thickened. Thickening, consistent with sclerosis. There is no evidence of stenosis. There is no significant regurgitation. Tricuspid valve: The leaflets are normal thickness. There is no evidence of stenosis. There is mild regurgitation. Pulmonic valve: Poorly visualized. The leaflets are normal thickness. There is no evidence of stenosis. There is trace regurgitation. Aorta: Aortic root: The aortic root is appears normal. Ascending aorta: The ascending aorta is appears normal. Aortic arch: The aortic arch is appears normal. Pericardium: A prominent pericardial fat pad is present. There is no significant pericardial effusion. Pulmonary arteries: The main pulmonary artery is normal-sized. Systolic pressure is within the normal range. Systemic veins: Inferior vena cava: The vessel is normal in size. There is (>= 50%) respiratory change in the IVC dimension. Measurements Left ventricle Value Ref Aortic valve Value Ref OLGA, LAX 4.6 cm 3.8 - 5.2 Diony diam, ED 1.8 cm ----- ESD, LAX (H) 4.1 cm 2.2 - 3.5 Peak v, S 1.41 m/sec ----- FS, LAX (L) 11 % 27 - 45 VTI, S 24.5 cm ----- PW, ED, LAX 0.8 cm 0.6 - 0.9 Mean grad, S 5.0 mm Hg ----- FS (L) 3 % 27 - 45 Peak grad, S 8.0 mm Hg ----- PW, ED 0.9 cm 0.6 - 0.9 LVOT/AV, VTI ratio 0.61 ----- E', lat diony, TDI (L) 7.4 cm/sec >=10.0 EDITH, VTI 1.92 cm^2 --- -- E/e', lat dioyn, 12 EDITH, Vmax 1.73 cm^2 ----- TDI E', med diony, TDI 7.7 cm/sec >=7.0 Mitral valve Value Ref E/e', med diony, 12 Peak E 0.91 m/sec ----- TDI Peak A 0.77 m/sec ----- E', avg, TDI 7.6 cm/sec Decel time 162 ms ----- E/e', avg, TDI 12 <=14 Peak grad, D 3.3 mm Hg --- -- Peak E/A ratio 1.2 ----- LVOT Value Ref Diam, S 2.00 cm Pulmonic valve Value Ref Area 3.1 cm^2 Peak v, S 0.78 m/sec ----- Peak rachel, S 0.78 m/sec Peak grad, S 2.0 mm Hg ----- VTI, S 15.0 cm Mean grad, S 1 mm Hg Tricuspid valve Value Ref SV 48 ml TR peak v 2.6 m/sec <=2.8 SV/bsa 27 ml/m^2 Peak RV-RA grad, S 27 mm Hg ----- Ventricular septum Value Ref Aortic root Value Ref IVS, ED (H) 1.0 cm 0.6 - 0.9 Root diam 3.1 cm <4.0 Right ventricle Value Ref Ascending aorta Value Ref OLGA, LAX 3.0 cm AAo AP diam, S 3.1 cm ----- OLGA minor ax, A4C 2.8 cm 1.9 - 3.5 mid Aortic arch Value Ref Pressure, S 30 mm Hg Arch diam 3.0 cm ----- Left atrium Value Ref Decending aorta Value Ref AP dim, ES 3.50 cm 2.70 - Bg peak rachel 0.99 m/sec ----- 3.80 ML dim, A4C 4.4 cm Pulmonary artery Value Ref SI dim, A4C 5.1 cm Pressure, S 28.0 mm Hg ----- Vol/bsa, ES, 1-p 26 ml/m^2 11 - 40 A4C Inferior vena cava Value Ref Vol/bsa, ES, A/L 25 ml/m^2 16 - 34 Diam 1.6 cm ----- Right atrium Value Ref SI dim, ES 4.3 cm 3.4 - 5.3 ML dim, ES, A4C 3.7 cm 2.6 - 4.4 Estimated RAP 3 mm Hg Legend: (L) and (H) bradley values outside specified reference range. Prepared and electronically signed by Isreal Todd MD 04/27/2019 14:46
[2019-04-27] MEDS: Atorvastatin* 10 MG TAB PO SCH (17:47)
[2019-04-27] MEDS: Enoxaparin(*) 80 MG/0.8 ML SYR SUBCUT SCH (17:48)
[2019-04-27 19:14] LABS: Troponin I 0.47 ng/mL (<0.03)
[2019-04-27] MEDS ORDERED: Atorvastatin* 80 MG TAB PO SCH (21:00)
[2019-04-27] MEDS: CMCS: Venlafaxine TAB (NF) 25 MG TAB PO SCH (21:16)
[2019-04-27] MEDS: Nitroglycerin 0.1 mg/Hr PATCH* (2.5 MG) TRANSDERM SCH (21:24)
[2019-04-28] MEDS ORDERED: Acetaminophen TAB* 325 MG PO PRN (03:49)
[2019-04-28] MEDS: Enoxaparin(*) 80 MG/0.8 ML SYR SUBCUT SCH ×2 (05:03→17:22)
[2019-04-28 05:09] LABS: Hematocrit 38 % (35-47); Hemoglobin 13.1 g/dL (12.0-16.0); Mean Corpuscular HGB Conc 35 g/dL (31-36); Mean Corpuscular Hemoglobin 30 pg (27-31); Mean Corpuscular Volume 87 fL (80-97); Mean Platelet Volume 8.8 fL (7.4-10.4); Platelet Count 243 10^3/uL (150-450); Red Blood Count 4.36 10^6 /uL (3.70-4.87); Red Cell Distribution Width 13 % (10-15); White Blood Count 8.2 10^3/uL (3.5-10.8)
[2019-04-28 05:27] LABS: Anion Gap 6 mmol/L (2-11); BUN/Creatinine Ratio 24.2 (8-20); Blood Urea Nitrogen 16 mg/dL (6-24); CO2 Carbon Dioxide 24 mmol/L (22-32); Calcium 8.5 mg/dL (8.6-10.3); Chloride 102 mmol/L (101-111); EGFR African American 114.7 (>60); EGFR Non-African American 94.8 (>60); Glucose 265 mg/dL (70-100); Potassium 4.1 mmol/L (3.5-5.0); Sodium 132 mmol/L (135-145)
[2019-04-28] MEDS ORDERED: Enoxaparin(*) 40 MG/0.4 ML SYR SUBCUT ONE (05:30)
[2019-04-28] MEDS: Nitroglycerin 0.1 mg/Hr PATCH* (2.5 MG) TRANSDERM SCH ×3 (08:00→08:23)
[2019-04-28] MEDS: OXcarbazepine TAB(*) 300 MG PO SCH ×2 (08:18→20:49)
[2019-04-28] MEDS: Clopidogrel TAB* 75 MG PO SCH (08:18)
[2019-04-28] MEDS: Aspirin EC TAB* 81 MG TAB.EC PO SCH (08:18)
[2019-04-28] MEDS: Topiramate TAB(*) 25 MG PO SCH ×2 (08:18→20:49)
[2019-04-28] MEDS ORDERED: Clopidogrel TAB* 300 MG PO ONE (08:23)
[2019-04-28] MEDS: Insulin LISPRO* 1 UNITS UNIT SUBCUT SCH ×3 (08:23→17:22)
[2019-04-28] MEDS ORDERED: Clopidogrel TAB* 75 MG PO ONE (08:30)
--- NOTE | 2019-04-28 08:55 | PN ---
Subjective Date of Service: 04/28/19 Interval History: Pt is feeling overwhelmed this AM. She is very fearful about going for catheterization later today. She denies any chest pain when I see her. I start to discuss her anxiety surrounding menopause and she bursts out crying and stating "what are you 11?" She calms slightly and we are able to discuss further that she has wanted to kill herself due to going through menopause but "has not had the courage." I offered her an evaluation with Maddy Mckenna NP who specializes in menopause and she is receptive. Additionally given her statements about suicide I did alert her to the fact that I need to get a psych consult and she is agreeable. Overall her anxiety is very high and she is scared. Objective Active Medications: Acetaminophen (Tylenol Tab*) 650 mg PO Q6H PRN PRN Reason: MILD PAIN or TEMP > 100.4 Last Admin: 04/28/19 04:00 Dose: 650 mg Aspirin (Aspirin Ec Tab*) 81 mg PO DAILY [facility] Last Admin: 04/28/19 08:18 Dose: 81 mg Atorvastatin Calcium (Lipitor*) 10 mg PO 1700 [facility] Last Admin: 04/27/19 17:47 Dose: 10 mg Clopidogrel Bisulfate (Plavix Tab*) 75 mg PO DAILY [facility] Last Admin: 04/28/19 08:18 Dose: 75 mg Dextrose (Dextrose 50% Vial 50 Ml*) 25 ml IV PUSH .FOR FS < 60 - SS PRN PRN Reason: FS < 60 Last Admin: 04/27/19 07:30 Dose: 25 ml Enoxaparin Sodium (Lovenox(*)) 80 mg SUBCUT Q12H [facility] Last Admin: 04/28/19 05:03 Dose: Not Given Insulin Human Lispro (Humalog*) 0 units SUBCUT AC [facility]; Protocol Last Admin: 04/28/19 08:23 Dose: 6 units Nitroglycerin (Nitroglycerin Tab 0.4 Mg*) 0.4 mg SL Q5M PRN PRN Reason: CHEST PAIN Nitroglycerin (Nitroglycerin 2.5 Mg Patch*) 1 patch TRANSDERM DAILY@0900 [facility] Last Admin: 04/28/19 08:23 Dose: 1 patch Nitroglycerin (Nitroglycerin 2.5 Mg Patch*) 1 patch TRANSDERM DAILY@0900 [facility] Last Admin: 04/28/19 08:22 Dose: Not Given Ondansetron HCl (Zofran Inj*) 4 mg IV Q6H PRN PRN Reason: NAUSEA/VOMITING Oxcarbazepine (Trileptal Tab(*)) 600 mg PO BID [facility] Last Admin: 04/28/19 08:18 Dose: 600 mg Pharmacy Profile Note (Nitro Patch/Oint Remove*) 1 note PATCH OFF 2099 [facility] Pharmacy Profile Note (Nitro Patch/Oint Remove*) 1 note PATCH OFF ONCE ONE Stop: 04/28/19 09:01 Last Admin: 04/28/19 08:19 Dose: 1 patch Topiramate (Topamax(*)) 50 mg PO BEDTIME [facility] Last Admin: 04/27/19 21:16 Dose: 50 mg Topiramate (Topamax(*)) 25 mg PO DAILY [facility] Last Admin: 04/28/19 08:18 Dose: 25 mg Venlafaxine HCl (Effexor Tab (Nf)) 75 mg PO BEDTIME [facility] Last Admin: 04/27/19 21:16 Dose: 75 mg Vital Signs - 8 hr 04/28/19 04/28/19 03:37 07:15 Temperature 97.8 F 97.2 F Pulse Rate 91 81 Respiratory 16 18 Rate Blood Pressure 125/70 117/72 (mmHg) O2 Sat by Pulse 99 100 Oximetry Oxygen Devices in Use Now: None Appearance: Middle aged female lying in bed, tearful after our discussion but in NAD Eyes: No Scleral Icterus Ears/Nose/Mouth/Throat: Mucous Membranes Moist Respiratory: Symmetrical Chest Expansion and Respiratory Effort, Clear to Auscultation Cardiovascular: NL Sounds; No Murmurs; No JVD, RRR, No Edema Abdominal: NL Sounds; No Tenderness; No Distention Extremities: No Clubbing, Cyanosis Skin: No Nodules or Sclerosis Neurological: Alert and Oriented x 3 Result Diagrams: 04/28/19 04:51 04/28/19 04:51 Assess/Plan/Problems-Billing Ms Frederick is 49yo F who has a h/o CAD s/p CINDI, active tobacco use, DM2, HTN, asthma, bipolar disorder, ADD and anxiety who is transferred from [place] for concern for NSTEMI in setting of complete medication nonadherence. - Patient Problems (1) NSTEMI (non-ST elevated myocardial infarction) Current Visit: Yes Status: Acute Code(s): I21.4 - NON-ST ELEVATION (NSTEMI) MYOCARDIAL INFARCTION SNOMED Code(s): 92728231 Comment: Plan is now for the patient to go to the cardiac catheterization technician today. Continue plavix (she is being loaded today) and ASA. She remains on therapeutic dosed lovenox, lipitor 10mg and BBlocker currently on hold. (2) Suicidal ideation Current Visit: Yes Status: Acute Code(s): R45.851 - SUICIDAL IDEATIONS SNOMED Code(s): 1523389 Comment: Pt states she is suicidal but states that she has just not had the courage to go through with it. Much of her suicidality stems from her going through menopause. I have asked for psych consult and in addition will have Maddy Mckenna NP take over care tomorrow as hospitalist but she also specializes in menopause and may be able to provide further women's health care. (3) Diabetes Current Visit: Yes Status: Acute Code(s): E11.9 - TYPE 2 DIABETES MELLITUS WITHOUT COMPLICATIONS SNOMED Code(s): 04486031 Comment: Pt is a type II diabetic with a HbA1c of 13.7%. She has been completely non-compliant with her medications due to her suicidal ideation secondary to going through menopause. Will resume glipizide but hold metformin as she will be undergoing catheterization. Will also continue lispro sliding scale. (4) Bipolar disorder Current Visit: Yes Status: Acute Comment: Continue topamax, oxcarbazepine and venlafaxine. (5) Tobacco abuse Current Visit: Yes Status: Acute Code(s): Z72.0 - TOBACCO USE SNOMED Code( s): 107956761 Comment: Continue nicotine replacement therapy. (6) DVT prophylaxis Current Visit: Yes Status: Acute Code(s): LPI5032 - SNOMED Code(s): 156976811 Comment: lovenox (7) Full code status Current Visit: Yes Status: Acute Code(s): Z78.9 - OTHER SPECIFIED HEALTH STATUS SNOMED Code(s): 125333722
[2019-04-28] MEDS ORDERED: Nitro Patch/OINT Remove PATCH OFF ONE (09:00)
[2019-04-28] MEDS ORDERED: Montelukast Sodium TAB* 10 MG PO ONE (10:00)
[2019-04-28] MEDS ORDERED: Midazolam* 1 MG/ML 5 ML VIAL (5 MG) ONE (11:51)
[2019-04-28] MEDS ORDERED: fentaNYL* 50 MCG/ML 2 ML VIAL (100 MCG VIAL) ONE (11:51)
[2019-04-28] MEDS ORDERED: Iohexol 350 (CONTRAST) 200 ML MDV IV ONE (11:52)
[2019-04-28] MEDS ORDERED: Lidocaine 1% INJ* 10 MG/ML 30 ML SDV ONE (11:52)
[2019-04-28] MEDS ORDERED: Heparin 2 UNITS/ML IVPREMIX* 3,000 ML IV ONE (11:52)
[2019-04-28] MEDS ORDERED: Heparin(*) 1000 UNIT/ML 10 ML VIAL CATH LAB IV ONE (11:55)
[2019-04-28] MEDS ORDERED: nitroGLYCERIN DRIP* 0 MCG/0 ML BTL ONE (11:55)
[2019-04-28] MEDS ORDERED: Dextrose 50% Syringe 50 ML* 25 GM/50 ML SYRINGE IV PUSH PRN (12:44)
--- NOTE | 2019-04-28 13:13 | CONSULT ---
Consult Consult: Psychiatry attempted to [facility] and was informed that she has just been transported to the Cardiology suite for coronary catheterization. She is not expected back on [address] [place] [address] for another 4-5 hours. Psychiatry will refer the consultation to the weekend on-call psychiatrist, Dr. Cueva, who can be reached through the [facility] at [phone]. Dr. Bella and unit staff were notified and expressed agreement with the plan.
[2019-04-28] MEDS: NS 0.9% 1000 ML** 1,000 ML IV SCH ×2 (14:02→15:30)
--- NOTE | 2019-04-28 15:14 | CATH ---
CC: Dr. Koko Nava; Gee Toney MD; Dr. Vicente Ba CARDIAC CATHETERIZATION REPORT: DATE OF PROCEDURE: 04/28/19 INDICATION FOR PROCEDURE: Asked by Dr. Isreal Todd (sleeve presser operator managing the patient in hospital) to perform cardiac catheterization to look for progression of coronary artery disease in light of [id number] myocardial infarction presentation with prior history of coronary artery disease. PROCEDURE: Coronary arteriography (left ventriculography was not performed as the patient had already undergone an echocardiogram less than 24 hours ago). CONSENT: The patient was interviewed and examined on the floor of the hospital where the risks and benefits were explained. She understood them and wished to proceed. APPROACH UTILIZED: The right femoral artery approach was chosen as on a prior study in 2018 the patient had significant spasm in the right radial artery making it impossible to engage the left coronary catheter. Subsequent intervention 3 months later at [facility] was performed from the right femoral artery area. As such, the right femoral artery approach was utilized in this study. PRE-CARDIAC CATHETERIZATION LABORATORY RESULTS: Hemoglobin and hematocrit of 13.1 and 38 with a platelet count of 243,000. Sodium 132, potassium 4.1, chloride 102, bicarb 24, BUN and creatinine of 16 and 0.6. Troponin peak during the hospitalization of 0.47, at 0.30 on the day of cardiac catheterization. EQUIPMENT UTILIZED: 1. Right femoral artery sheath was a 5-Thai 11 cm Stephanie sheath. 2. Diagnostic coronary catheters were an FL4 and an FR4 5-Thai diagnostic catheters. 3. The diagnostic guidewire utilized was a 150 cm length standard J-tipped guidewire. MEDICATIONS GIVEN DURING THE PROCEDURE: 1. The patient received 1% lidocaine and 0.5 mg of Versed. 2. The patient also received a 100 mL bolus for a mildly reduced systolic pressure. DESCRIPTION OF PROCEDURE: The patient was brought to the cardiovascular laboratory where a formal time-out was performed. She was prepped and draped in sterile fashion, and the right femoral artery was cannulated and the sheath was placed. Coronary arteriography was performed. At the end of the case, an injection was made into the right femoral sheath to assess the eligibility to utilize closure device. The decision was made not to utilize the closure device due to the borderline high entry point into the femoral artery. Also, there was disease present at that point, which would not allow proper sitting of devices. The total contrast used was 75 cc of Omnipaque dye. The radiation exposure included 4.4 minutes of fluoro time. The air kerma radiation was 621 mGy. The DAP radiation was 3803 microgray per meter squared. RESULTS: CORONARY ARTERIOGRAPHY: A. Left coronary artery: 1. Left main - widely patent with no significant disease. 2. Left anterior descending artery. The left anterior descending artery supplied a small first diagonal branch followed by a diffusely diseased second diagonal branch with 90% ostial narrowing with long 80% obstruction leading to 95% narrowing in a bifurcating area. Both branches appeared to be somewhat small in nature at 1.5 to 2 mm in diameter. The continuation of the LAD had a hazy mid lesion of 80% to 85% before it widened into a more normal appearing area. The distal vessel extended to the apical region and slightly onto the distal inferior wall. 3. Circumflex artery - a nondominant vessel supplying a thin first obtuse marginal branch, which had 75% to 80% ostial narrowing. Past this point , there was a stented area, long in nature, from the proximal to distal segment with mild/mild-to- moderate in-stent restenosis. It should be noted that there was a very thin second obtuse marginal branch that did not fill well at all in between the first obtuse marginal branch and the larger caliber bifurcating left obtuse marginal branch. This vessel was a thread-like vessel at best and supplied minimal myocardium. B. Right coronary artery: A dominant vessel supplying the PDA, 2 small caliber posterior left ventricular branches and ending in a slightly larger caliber posterior left ventricular branch. The mid portion of the right coronary artery had a narrowing of approximately 50% to 55% with a narrowing of 55% to 60% in the proximal portion of the posterior descending artery. OVERALL ASSESSMENT: Significant multivessel disease most impressively involving the smaller caliber second diagonal branch, of which I believe the medial branch is bypassable. Past this point is a significant lesion in the LAD, which has progressed since the last cardiac catheterization where it was reported to be only 45% narrow back in 2018. Unfortunately, attempting to put a stent in this area and stenting all of the diseased segment would involve covering the ostium of the second diagonal branch, which would be very difficult to protect or even intervene on given the small caliber of it and the diffuse nature of the ostium , somewhat long proximal segment and bifurcating area. The better option may be to approach it with bypass surgery to the diagonal branch and AWAD graft to the LAD. Given the disease in the right coronary artery, it would be reasonable to perform a vein graft to the posterior descending artery. There is [id number] in-stent restenosis, but there does not appear to be a critical high-grade stenosis present. This information was shared with Dr. Isreal Todd. I also discussed the case with Dr. Vicente Ba after Dr. Todd had felt bypass surgery would be the better choice given her diabetic status, her left ventricular systolic dysfunction (quoted by Dr. Todd to be 25% to 30% on current echo), as well as his feeling that she may not be reliable with dual antiplatelet therapy which would clearly have to be for a prolonged period of time given the small caliber stents needed especially treating the diagonal branch. Dr. Todd will discuss all of this with the patient as well, but my preliminary discussion seems to be that she favors being transferred for bypass surgery. Further management will be discussed by Dr. Todd and probably with transfer to [facility] for Dr. Ba's help with coronary artery bypass surgery. [id number]/[facility] #: [id number] BHAKTI
[2019-04-28] MEDS: Nitroglycerin 0.2 MG/HR PATCH* (5 MG) TRANSDERM SCH (15:31)
[2019-04-28] MEDS: Atorvastatin* 10 MG TAB PO SCH (17:22)
[2019-04-28] MEDS: glipiZIDE TAB* 5 MG PO SCH (17:22)
[2019-04-28] MEDS: CMCS: Venlafaxine TAB (NF) 25 MG TAB PO SCH (20:49)
[2019-04-28] MEDS ORDERED: Nitro Patch/OINT Remove PATCH OFF SCH (21:00)
--- NOTE | 2019-04-28 23:31 | DS ---
DISCHARGE SUMMARY: DATE OF ADMISSION: 04/27/19 DATE OF DISCHARGE: To [facility], 04/29/19. PRIMARY CARE PROVIDER: Unknown. PRINCIPAL DIAGNOSES: 1. Severe multivessel coronary artery disease. 2. Suicidal ideation. SECONDARY DIAGNOSES: 1. Type 2 diabetes. 2. Hypertension. 3. Hyperlipidemia. 4. Attention deficit disorder. 5. Bipolar disorder. 6. Anxiety. MEDICATIONS ON TRANSFER: 1. Tylenol 650 mg p.o. q.6 hours p.r.n. pain. 2. Aspirin 81 mg p.o. daily. 3. Lipitor 10 mg p.o. daily. 4. Plavix 75 mg p.o. daily. 5. Lovenox 80 mg subcutaneous q.12 hours. 6. Glipizide 5 mg p.o. twice daily. 7. Lispro sliding scale q.a.c. 8. Singulair 10 mg p.o. daily. 9. Nitroglycerin 0.4 mg subcu 5 minutes p.r.n. chest pain. 10. Nitroglycerin 5 mg patch apply topically daily. 11. Trileptal 600 mg p.o. b.i.d. 12. Topamax 25 mg p.o. q.a.m., 50 mg p.o. q.p.m. 13. Venlafaxine 75 mg p.o. q.h.s. HOSPITAL COURSE: Ms. Frederick is a 49-year-old female with history of coronary artery disease, hypertension, type 2 diabetes, hyperlipidemia, and bipolar disorder, who presented to [facility] on 04/27/19. The patient was transferred to [facility] for evaluation of her chest pain. The pain was described as a pressing sensation to the left chest, which radiates to the left shoulder and left arm. The patient had an initial troponin of 0.16. This ultimately peaked at 0.47. Initially given the patient's psychiatric status, the decision was made to medically manage the patient, however, on 04/28/19, the patient was taken to the cardiac catheterization lab. The cardiac catheterization revealed significant multivessel disease most impressively involving the smaller caliber second diagonal branch, of which Dr. Funes believe the medial branch is bypassable. Past that point in the LAD, there was a significant lesion, which has progressed since the last cardiac catheterization where it was reported to only be 45% in 2018. Given the location, it was felt that this was not easily stentable. It was felt that bypass surgery is likely a better option. Dr. Funes spoke with Dr. Ba, [facility], who has kindly accepted the patient in transfer. The patient does remain on Lovenox 80 mg subcutaneous q.12 hours, aspirin 81 mg daily, Lipitor 10 mg daily, and she was loaded with Plavix on 04/28/19. She also continues on nitroglycerin patch. The patient has been chest pain free. In addition to the cardiac complaints, the patient also freely admitted to the fact that she has significant anxiety and suicidal ideation regarding going through menopause. The patient in fact stated to me on 04/27/19 that she has contemplated killing herself, however, states that she has not had the courage to do so. Psychiatry consultation was requested, however, was unable to be performed as the patient was in the cardiac catheterization lab when the psychiatrist presented to see her. The patient will ultimately benefit from psychiatry evaluation. Additionally upon discharge from [facility], referral to Magui Mckenna NP at the [facility] for menopause care would be beneficial to the patient. The patient had complete medication noncompliance prior to her hospitalization. Her hemoglobin A1c is markedly elevated at 13.7%. She was supposed to be taking metformin and glipizide. The patient was resumed on glipizide though the dose was increased to 5 mg twice daily. Her metformin is on hold given her cardiac catheterization. Despite this, her blood sugar still remain elevated. At this point, I am not making any changes to her diabetes regimen. However, she will need aggressive management of her diabetes in the very near future. She remains on lispro sliding scale. In terms of the patient's psychiatric history, she also remains on Topamax and Trileptal. As above, she would benefit from Psychiatry consultation. FOLLOWUP CONCERNS: The patient is being transferred to [facility] on 04/29/19. ACTIVITY LEVEL: As tolerated. DIET: Heart healthy. CONDITION ON DISCHARGE: Stable. TIME SPENT: Forty-five minutes was spent on the transfer of this patient. [id number]/[facility] #: [id number] MTDD
[2019-04-29] MEDS: Enoxaparin(*) 80 MG/0.8 ML SYR SUBCUT SCH (05:37)
[2019-04-29 06:53] LABS: ABS Basophils 0.1 10^3/ul (0-0.2); ABS Eosinophils 0.2 10^3/ul (0-0.6); ABS Lymphocytes 1.4 10^3/ul (1.0-4.8); ABS Monocytes 0.7 10^3/ul (0-0.8); ABS Neutrophils 7.3 10^3/ul (1.5-7.7); Eosinophil % 2.6 %; Hematocrit 40 % (35-47); Hemoglobin 13.7 g/dL (12.0-16.0); Lymphocyte % 14.9 %; Mean Corpuscular HGB Conc 34 g/dL (31-36); Mean Corpuscular Hemoglobin 30 pg (27-31); Mean Corpuscular Volume 88 fL (80-97); Mean Platelet Volume 8.6 fL (7.4-10.4); Nucleated Red Blood Cells % 0.1; Platelet Count 248 10^3/uL (150-450); Red Blood Count 4.55 10^6 /uL (3.70-4.87); Red Cell Distribution Width 13 % (10-15); White Blood Count 9.7 10^3/uL (3.5-10.8)
[2019-04-29 07:11] LABS: Albumin 3.5 g/dL (3.2-5.2); Albumin/Globulin Ratio 1.2 (1-3); BUN/Creatinine Ratio 23.8 (8-20); Calcium 8.4 mg/dL (8.6-10.3); Potassium 4.3 mmol/L (3.5-5.0); Total Bilirubin 0.3 mg/dL (0.2-1.0); Total Protein 6.5 g/dL (6.4-8.9)
[2019-04-29] MEDS ORDERED: Montelukast Sodium TAB* 10 MG PO SCH (09:00)
[2019-04-29] MEDS: Aspirin EC TAB* 81 MG TAB.EC PO SCH (09:22)
[2019-04-29] MEDS: Nitroglycerin 0.2 MG/HR PATCH* (5 MG) TRANSDERM SCH (09:23)
[2019-04-29] MEDS: glipiZIDE TAB* 5 MG PO SCH (09:23)
[2019-04-29] MEDS: Insulin LISPRO* 1 UNITS UNIT SUBCUT SCH (09:23)
[2019-04-29] MEDS: Topiramate TAB(*) 25 MG PO SCH (09:23)
[2019-04-29] MEDS: OXcarbazepine TAB(*) 300 MG PO SCH (09:24)
[2019-04-29 10:05] VITALS: BP 108/68
[2019-04-29] MEDS ORDERED: Nitro Patch/OINT Remove PATCH OFF SCH (21:00)
== END 2019-04-29 10:27 | disposition short-term general hospital (02) | DRG 190 ==
LOC: UNDOADMIN 05:59 → MEDTELE 05:59
PROVIDERS: ADMIT Internal Medicine; ATTEND Hospitalist
PROC: B2111ZZ Fluoroscopy of Multiple Coronary Arteries using Low Osmolar Contrast (ICD-10-PCS; principal; 2019-04-28 10:00)
DX: I21.4 Non-ST elevation (NSTEMI) myocardial infarction (principal); T82.855A Stenosis of coronary artery stent, initial encounter; R45.851 Suicidal ideations; I50.22 Chronic systolic (congestive) heart failure; I25.10 Atherosclerotic heart disease of native coronary artery without angina pectoris; E11.9 Type 2 diabetes mellitus without complications; E78.5 Hyperlipidemia, unspecified; J45.909 Unspecified asthma, uncomplicated; F98.8 Other specified behavioral and emotional disorders with onset usually occurring in childhood and adolescence; Y83.8 Other surgical procedures as the cause of abnormal reaction of the patient, or of later complication, without mention of misadventure at the time of the procedure; F31.9 Bipolar disorder, unspecified; I34.0 Nonrheumatic mitral (valve) insufficiency; I11.0 Hypertensive heart disease with heart failure; F41.9 Anxiety disorder, unspecified; Z95.5 Presence of coronary angioplasty implant and graft; Z88.8 Allergy status to other drugs, medicaments and biological substances; Z88.5 Allergy status to narcotic agent; Z88.1 Allergy status to other antibiotic agents; Y92.9 Unspecified place or not applicable; Z91.14 Patient's other noncompliance with medication regimen; I25.2 Old myocardial infarction; Z72.0 Tobacco use; Z79.82 Long term (current) use of aspirin; Z79.02 Long term (current) use of antithrombotics/antiplatelets; Z79.01 Long term (current) use of anticoagulants; Z79.4 Long term (current) use of insulin
CPT/HCPCS: 36415; 80048; 80053; 80061; 82947; 83036; 84443; 84484; 85025; 85027; 85379; 90686; 90732; 93005; 93306; 93454; 99156; 99157; A9270-GY; C1887; J1644; J1650; J2250; J3010